=== PATIENT | male | born 1980 | race Caucasian/White ===

== ENCOUNTER 2019-04-13 10:17 | Outpatient (RCR) | payer MEDICARE, MEDICAID, SELFPAY | END 2019-04-13 23:59 | disposition home or self-care (01) | LOC: ANHAUDIO 10:17 | DX: Z46.1 Encounter for fitting and adjustment of hearing aid (principal) | CPT/HCPCS: 99199 ==

== ENCOUNTER 2019-06-23 09:23 | Outpatient (CLI) | payer MEDICARE, MEDICAID, SELFPAY | END 2019-06-23 09:24 | disposition home or self-care (01) | LOC: ANHAUDIO 09:25 | DX: Z01.118 Encounter for examination of ears and hearing with other abnormal findings (principal); H90.3 Sensorineural hearing loss, bilateral | CPT/HCPCS: 92557; 92567 ==

== ENCOUNTER 2020-07-18 07:56 | Outpatient (CLI) | payer MEDICARE, MEDICAID, SELFPAY | END 2020-07-18 07:57 | disposition home or self-care (01) | PROVIDERS: PCP Family Medicine; Visit Provider Family Medicine | DX: Z01.118 Encounter for examination of ears and hearing with other abnormal findings (principal); H90.3 Sensorineural hearing loss, bilateral | CPT/HCPCS: 92557; 92567 ==

== ENCOUNTER 2020-08-31 08:58 | Outpatient (RCR) | payer MEDICAID, SELFPAY | END 2020-08-31 23:59 | disposition home or self-care (01) | LOC: ANHAUDIO 08:58 | PROVIDERS: PCP Family Medicine; Visit Provider Family Medicine | DX: Z46.1 Encounter for fitting and adjustment of hearing aid (principal); H91.90 Unspecified hearing loss, unspecified ear | CPT/HCPCS: V5160; V5261 ==

== ENCOUNTER 2021-07-25 09:02 | Outpatient (CLI) | payer MEDICARE, MEDICAID, SELFPAY | END 2021-07-25 09:03 | disposition home or self-care (01) | LOC: ANHAUDIO 09:04 | PROVIDERS: PCP Family Medicine; Visit Provider Family Medicine | DX: Z01.118 Encounter for examination of ears and hearing with other abnormal findings (principal); H90.3 Sensorineural hearing loss, bilateral | CPT/HCPCS: 92557; 92567 ==

== ENCOUNTER 2022-08-01 08:48 | Outpatient (CLI) | payer MEDICARE, MEDICAID, SELFPAY | END 2022-08-01 08:49 | disposition home or self-care (01) | LOC: ANHAUDIO 08:49 | PROVIDERS: PCP Family Medicine; Visit Provider Family Medicine | DX: H90.3 Sensorineural hearing loss, bilateral (principal) | CPT/HCPCS: 92557; 92567 ==

== ENCOUNTER 2023-08-20 07:59 | Outpatient (CLI) | payer MEDICARE, MEDICAID, SELFPAY | END 2023-08-20 08:00 | disposition home or self-care (01) | LOC: ANHAUDIO 08:01 | PROVIDERS: PCP Family Medicine; Visit Provider Family Medicine | DX: H90.3 Sensorineural hearing loss, bilateral (principal) | CPT/HCPCS: 92557; 92567 ==

== ENCOUNTER 2024-08-25 07:56 | Outpatient (CLI) | payer MEDICARE, MEDICAID, SELFPAY ==
--- OUTSIDE RECORDS SUMMARY | 2024-08-25 08:02 | XMS_ITS ---
Author Organization Unknown Address [address] [place] [phone] Phone Care Team Providers Care Supervisor Dumping Name Role Phone VALERIEMADHAV LOTUS WHITAKERHNP Attending Unavailable BAO Walker Primary Unavailable Immunization Immunization Date Status Additional Notes Code Code System DTP 1982 Completed 01 CVX DTP 1982 Completed 01 CVX DTP 02/12/1983 Completed 01 CVX DTP 09/07/1986 Completed 01 CVX DTP 12/14/1987 Completed 01 CVX OPV 1982 Completed 02 CVX OPV 1982 Completed 02 CVX OPV 02/12/1983 Completed 02 CVX OPV 12/14/1987 Completed 02 CVX MMR 08/26/1984 Completed 03 CVX MMR 12/14/1987 Completed 03 CVX Td (adult), 2 Lf tetanus toxoid, preservative free, adsorbed 03/10/2002 Completed 09 CVX pneumococcal polysaccharide PPV23 11/19/2011 Completed 33 CVX Tdap 03/19/2011 Completed 115 CVX Tdap 11/28/2020 Completed 115 CVX Pneumococcal conjugate PCV 13 03/07/2016 Completed 133 CVX Influenza, split virus, trivalent, preservative 03/02/2012 Completed 141 CVX Influenza, split virus, trivalent, preservative 02/03/2024 Completed 141 CVX Influenza, split virus, quadrivalent, preservative 02/04/2017 Completed 158 C VX Influenza, split virus, quadrivalent, preservative 02/10/2018 Completed 158 C VX Influenza, split virus, quadrivalent, preservative 02/09/2019 Completed 158 C VX Influenza, split virus, quadrivalent, preservative 02/06/2021 Completed 158 C VX Influenza, split virus, quadrivalent, preservative 01/29/2022 Completed 158 C VX Influenza, split virus, quadrivalent, preservative 01/28/2023 Completed 158 C VX COVID-19, mRNA, LNP-S, PF, 1 00 mcg/0.5mL dose or 50 mcg/0.25mL dose 05/07/2021 Completed 207 CVX COVID-19, mRNA, LNP-S, PF, 3 0 mcg/0.3 mL dose 06/14/2020 Completed 208 CVX COVID-19, mRNA, LNP-S, PF, 3 0 mcg/0.3 mL dose 07/05/2020 Completed 208 CVX COVID-19, mRNA, LNP-S, PF, 5 0 mcg/0.5 mL 02/01/2024 Completed 312 CVX Results CBC W/ DIFF - Collect Date/T ayaz: 03/31/2024 07:25 [facility] ID: [id number] [address] [place], [place], [id number] LOINC: 17074-4 Test Value Unit Reference Range Code Code System Flag WBC 9.0 10^3uL L=4.8 H=10.8 RBC 5.17 10^6uL L=4.60 H=6.20 HEMOGLOBIN 16.0 g/dL L=14.0 H=18.0 718-7 LOINC HEMATOCRIT 49.8 VOL% L=42.0 H=52.0 4544-3 LOINC MCV 96.3 fL L=80.0 H=94.0 H MCH 30.9 pg L=27.0 H=32.0 MCHC 32.1 g/dL L=32.0 H=36.0 PLATELETS 305 10^3uL L=100 H=400 17172-3 LOINC RDW 12.6 % L=11.7 H=15.5 %GRAN 67.1 % L=40.0 H=70.0 52185-1 LOINC %LYMPH 21.2 % L=20.0 H=45.0 736-9 LOINC %MONO 8.6 % L=2.0 H=10.0 05939-9 LOINC %EOS 2.2 % L=0.0 H=6.0 713-8 LOINC %BASO 0.6 % L=0.0 H=3.0 706-2 LOINC #NEUT 6.0 10^3uL L=1.9 H=7.6 81075-0 LOINC #LYMPH 1.9 10^3uL L=0.9 H=4.9 50820-5 LOINC #MONO 0.8 10^3uL L=0.1 H=0.9 63702-8 LOINC #EOS 0.2 10^3uL L=0.0 H=0.6 712-0 LOINC #BASO 0.05 10^3uL L=0.00 H=0.10 88117-7 LOINC #IM GRANS 0.0 10^3uL L=0.0 H=7.0 79359-9 LOINC %IM GRANS 0.3 % L=0.0 H=5.0 36436-4 LOINC %NRB 0.0 L=0.0 H=0.2 14168-6 LOINC #NRB 0.000 L=0.000 H=0.012 85902-3 LOINC MANUAL DIFF NOT INDICATED RBC MORPH NOT INDICATED Social History Type Status Start Date End Date Code Code Syst em Smoking History Current every day smoker [id number] SNOMED CT Sex Male Medications Medication Start Date End Date Route Frequency Dose Code Code System Medication Instructions Home Meds Aspirin 325MG Oral Tablet 08/18/2021 Unknown ORAL ONCE A DAY 325 MILLIGRAMS 489012 RxNorm TAKE 325 MILLIGRAMS ORAL ONCE A DAY Cetirizine HCl 10MG Oral Tablet 08/18/2021 Unknown ORAL ONCE A DAY 10 MILLIGRAMS 1506886 RxNorm TAKE 10 MILLIGRAMS ORAL ONCE A DAY DSS 100MG Oral Capsule, Liquid Filled 08/18/2021 Unknown ORAL AT BEDTIME 100 MILLIGRAMS RxNorm TAKE 100 MILLIGRAMS ORAL AT BEDTIME Montelukast Sodium 10MG Oral Tablet 08/18/2021 Unknown ORAL AT BEDTIME 10 MILLIGRAMS [id number] RxNorm TAKE 10 MILLIGRAMS ORAL AT BEDTIME Multivitamin with Iron Oral Tablet 08/18/2021 Unknown ORAL ONCE A DAY 1 TABLET RxNorm TAKE 1 TABLET ORAL ONCE A DAY PARoxetine HCl 12.5MG Oral Tablet, Extended Release 08/18/2021 Unknown ORAL ONCE A DAY 12.5 MILLIGRAMS 3562546 RxNorm TAKE 12.5 MILLIGRAMS ORAL ONCE A DAY PARoxetine HCl 37.5MG Oral Tablet, Extended Release 08/18/2021 Unknown ORAL DAILY AT 1600 37.5 MILLIGRAMS 4314864 RxNorm TAKE 37.5 MILLIGRAMS ORAL DAILY AT 1600 Vitamin D3 2000 IU Oral Capsule, Liquid Filled 08/18/2021 Unknown ORAL ONCE A DAY 2000 unit(s) RxNorm TAKE 2000 EACH ORAL ONCE A DAY tadalafil 20MG Oral Tablet 08/18/2021 Unknown ORAL ONCE A DAY 20 MILLIGRAMS 8171916 RxNorm TAKE 20 MILLIGRAMS ORAL ONCE A DAY Albuterol Sulfate 0.083% Inhalation Solution 09/18/2021 Unknown NEBULIZER NEEDED EVERY 4 HOURS 2.5 MILLIGRAMS 664402 RxNorm 2.5 MILLIGRAMS NEBULIZER NEEDED EVERY 4 HOURS Lisinopril 10MG Oral Tablet 09/18/2021 Unknown ORAL ONCE A DAY 10 MILLIGRAMS 169432 RxNorm TAKE 10 MILLIGRAMS ORAL ONCE A DAY Metoprolol Succinate 50MG Oral Tablet, Extended Release 09/18/2021 Unknown ORAL ONCE A DAY 50 MILLIGRAMS 602524 RxNorm TAKE 50 MILLIGRAMS ORAL ONCE A DAY FOR HIGH BLOOD PRESSURE risperiDONE 0.5MG Oral Tablet 09/18/2021 Unknown ORAL ONCE A DAY 0.25 MILLIGRAMS 774119 RxNorm TAKE 0.25 MILLIGRAMS ORAL ONCE A DAY Lasix 40MG Oral Tablet 09/18/2021 Unknown BY MOUTH ONCE A DAY 1 TABLET RxNorm TAKE 1 TABLET BY MOUTH ONCE A DAY Assessment You had the following problems:CHFPNEUMONIA Hospital Discharge Instructions Should you have any questions prior to discharge, please contact a member of your healthcare team. If you have left the hospital and have any questions, please contact your primary care physician. Reason For Referral No Data Found Problems Problem Start Date Resolved Date Status Code Code System CHF active 16112202 SNOMED-CT PNEUMONIA 08/07/2021 active [id number] SNOMED-CT Allergies and Adverse Reactions Allergy Substance Reaction Severity Start Date Concern Status Co de Code System POLYMYXIN B/TRIMETHOPRIM SULFATE Active 059702 Rx Norm Plan of Treatment COVID-19 Antibody Therapy Infusion 03/25 Encounters Encounter Diagnosis Start Date Code Code Sys tem Shortness of breath 03/31/2024 SNOMED-C T Personal Care Team Section Performer Name Performer Role Active Date Inactive Da te
--- OUTSIDE RECORDS SUMMARY | 2024-08-25 08:03 | XMS_ITS ---
Author Organization Unknown Address [address] [place] [address] [phone] Phone Care Team Providers Care Template Reproduction Technician Name Role Phone JACK BORGES Attending Unavailable BAO Walker Primary Unavailable Immunization [...] mcg/0.5 mL 02/01/2024 Completed 312 CVX Results BASIC METABOLIC PANEL - Ruth ect Date/Time: 01/05/2024 07:10 [facility] ID: [id number] [address] [place], [place], [phone] LOINC: 28101-7 Test Value Unit Reference Range Code Code System Flag FASTING YES BUN 11 mg/dL L=7 H=20 3094-0 LOINC CREATININE 0.70 mg/dL L=0.66 H=1.25 2160-0 LOINC GLUCOSE 100 mg/dL L=74 H=106 2345-7 LOINC CALCIUM 9.7 mg/dL L=8.3 H=10.5 08291-9 LOINC SODIUM 137 mmol/L L=132 H=144 2951-2 LOINC POTASSIUM 4.7 mmol/L L=3.5 H=5.1 2823-3 LOINC CHLORIDE 102 mmol/L L=98 H=107 2075-0 LOINC CO2 26.0 mmol/L L=22.0 H=30.0 2028-9 LOINC ANION GAP 14 L=10 H=20 53912-2 LOINC BUN/CREAT 15.7 3097-3 LOINC AGE 43 13001-1 LOINC eGFR NON-AFR 132 ml/min eGFR AFR AMER 160 ml/min Social History Type Status Start Date End Date Code Code Syst em Smoking History Current every day smoker [id number] SNOMED CT Sex Male Medications Medication Start Date End Date Route Frequency Dose Code Code System Medication Instructions Home Meds Aspirin 325MG Oral Tablet 08/18/2021 Unknown ORAL ONCE A DAY 325 MILLIGRAMS 271774 RxNorm TAKE 325 MILLIGRAMS ORAL ONCE A DAY Cetirizine HCl 10MG Oral Tablet 08/18/2021 Unknown ORAL ONCE A DAY 10 MILLIGRAMS 2995614 RxNorm TAKE 10 MILLIGRAMS ORAL ONCE A DAY DSS 100MG Oral Capsule, Liquid Filled 08/18/2021 Unknown ORAL AT BEDTIME 100 MILLIGRAMS RxNorm TAKE 100 MILLIGRAMS ORAL AT BEDTIME Montelukast Sodium 10MG Oral Tablet 08/18/2021 Unknown ORAL AT BEDTIME 10 MILLIGRAMS 862144 RxNorm TAKE 10 MILLIGRAMS ORAL AT BEDTIME Multivitamin with Iron Oral Tablet 08/18/2021 Unknown ORAL ONCE A DAY 1 TABLET RxNorm TAKE 1 TABLET ORAL ONCE A DAY PARoxetine HCl 12.5MG Oral Tablet, Extended Release 08/18/2021 Unknown ORAL ONCE A DAY 12.5 MILLIGRAMS 5306471 RxNorm TAKE 12.5 MILLIGRAMS ORAL ONCE A DAY PARoxetine HCl 37.5MG Oral Tablet, Extended Release 08/18/2021 Unknown ORAL DAILY AT 1600 37.5 MILLIGRAMS 9538557 RxNorm TAKE 37.5 MILLIGRAMS ORAL DAILY AT 1600 Vitamin D3 2000 IU Oral Capsule, Liquid Filled 08/18/2021 Unknown ORAL ONCE A DAY 2000 unit(s) RxNorm TAKE 2000 EACH ORAL ONCE A DAY tadalafil 20MG Oral Tablet 08/18/2021 Unknown ORAL ONCE A DAY 20 MILLIGRAMS 3793023 RxNorm TAKE 20 MILLIGRAMS ORAL ONCE A DAY Albuterol Sulfate 0.083% Inhalation Solution 09/18/2021 Unknown NEBULIZER NEEDED EVERY 4 HOURS 2.5 MILLIGRAMS 383705 RxNorm 2.5 MILLIGRAMS NEBULIZER NEEDED EVERY 4 HOURS Lisinopril 10MG Oral Tablet 09/18/2021 Unknown ORAL ONCE A DAY 10 MILLIGRAMS 266026 RxNorm TAKE 10 MILLIGRAMS ORAL ONCE A DAY Metoprolol Succinate 50MG Oral Tablet, Extended Release 09/18/2021 Unknown ORAL ONCE A DAY 50 MILLIGRAMS 184904 RxNorm TAKE 50 MILLIGRAMS ORAL ONCE A DAY FOR HIGH BLOOD PRESSURE risperiDONE 0.5MG Oral Tablet 09/18/2021 Unknown ORAL ONCE A DAY 0.25 MILLIGRAMS 262828 RxNorm TAKE 0.25 MILLIGRAMS ORAL ONCE A [...] Date Status Code Code System CHF active 57413244 SNOMED-CT PNEUMONIA 08/07/2021 active 348324823 SNOMED-CT Allergies and Adverse Reactions Allergy Substance Reaction Severity Start Date Concern Status Co de Code System POLYMYXIN B/TRIMETHOPRIM SULFATE Active 861315 Rx Norm Plan of Treatment COVID-19 Antibody Therapy Infusion 03/25 Encounters Encounter Diagnosis Start Date Code Code Sys tem Other detention (current) drug therapy 01/05/2024 SNOMED-CT Personal Care Team Section Performer Name Performer Role Active Date Inactive Da te
--- OUTSIDE RECORDS SUMMARY | 2024-08-25 08:03 | XMS_ITS ---
Author Organization Unknown Address [address] [place] [phone] Phone Care Team Providers Care Hypo Dipper Name Role Phone VALERIEMADHAV LOTUS WHITAKERHNP Attending [...] BASIC METABOLIC PANEL - Ruth ect Date/Time: 03/08/2024 08:05 [facility] ID: [id number] [address] [place], [place], [phone] LOINC: 77686-9 Test Value Unit Reference Range Code Code System Flag FASTING NO BUN 9 mg/dL L=7 H=20 3094-0 LOINC CREATININE 0.90 mg/dL L=0.66 H=1.25 2160-0 LOINC GLUCOSE 150 mg/dL L=74 H=106 2345-7 LOINC H CALCIUM 9.8 mg/dL L=8.3 H=10.5 03601-6 LOINC SODIUM 138 mmol/L L=132 H=144 2951-2 LOINC POTASSIUM 4.5 mmol/L L=3.5 H=5.1 2823-3 LOINC CHLORIDE 98 mmol/L L=98 H=107 2075-0 LOINC CO2 29.0 mmol/L L=22.0 H=30.0 2028-9 LOINC ANION GAP 16 L=10 H=20 58885-5 LOINC BUN/CREAT 10.0 3097-3 LOINC AGE 43 00878-2 LOINC eGFR NON-AFR 99 ml/min eGFR AFR AMER 120 ml/min Social History Type Status Start Date End Date Code Code Syst em Smoking History Current every day smoker 124925338 SNOMED CT Sex Male Medications Medication Start Date End Date Route Frequency Dose Code Code System Medication Instructions Home Meds Aspirin 325MG Oral Tablet 08/18/2021 Unknown ORAL ONCE A DAY 325 MILLIGRAMS 813244 RxNorm TAKE 325 MILLIGRAMS ORAL ONCE A DAY Cetirizine HCl 10MG Oral Tablet 08/18/2021 Unknown ORAL ONCE A DAY 10 MILLIGRAMS 1326396 RxNorm TAKE 10 MILLIGRAMS ORAL ONCE A DAY DSS 100MG Oral Capsule, Liquid Filled 08/18/2021 Unknown ORAL AT BEDTIME 100 MILLIGRAMS RxNorm TAKE 100 MILLIGRAMS ORAL AT BEDTIME Montelukast Sodium 10MG Oral Tablet 08/18/2021 Unknown ORAL AT BEDTIME 10 MILLIGRAMS 526432 RxNorm TAKE 10 MILLIGRAMS ORAL AT BEDTIME Multivitamin with Iron Oral Tablet 08/18/2021 Unknown ORAL ONCE A DAY 1 TABLET RxNorm TAKE 1 TABLET ORAL ONCE A DAY PARoxetine HCl 12.5MG Oral Tablet, Extended Release 08/18/2021 Unknown ORAL ONCE A DAY 12.5 MILLIGRAMS 2004036 RxNorm TAKE 12.5 MILLIGRAMS ORAL ONCE A DAY PARoxetine HCl 37.5MG Oral Tablet, Extended Release 08/18/2021 Unknown ORAL DAILY AT 1600 37.5 MILLIGRAMS 1922647 RxNorm TAKE 37.5 MILLIGRAMS ORAL DAILY AT 1600 Vitamin D3 2000 IU Oral Capsule, Liquid Filled 08/18/2021 Unknown ORAL ONCE A DAY 2000 unit(s) RxNorm TAKE 2000 EACH ORAL ONCE A DAY tadalafil 20MG Oral Tablet 08/18/2021 Unknown ORAL ONCE A DAY 20 MILLIGRAMS 7723387 RxNorm TAKE 20 MILLIGRAMS ORAL ONCE A DAY Albuterol Sulfate 0.083% Inhalation Solution 09/18/2021 Unknown NEBULIZER NEEDED EVERY 4 HOURS 2.5 MILLIGRAMS 671393 RxNorm 2.5 MILLIGRAMS NEBULIZER NEEDED EVERY 4 HOURS Lisinopril 10MG Oral Tablet 09/18/2021 Unknown ORAL ONCE A DAY 10 MILLIGRAMS 256574 RxNorm TAKE 10 MILLIGRAMS ORAL ONCE A DAY Metoprolol Succinate 50MG Oral Tablet, Extended Release 09/18/2021 Unknown ORAL ONCE A DAY 50 MILLIGRAMS 935387 RxNorm TAKE 50 MILLIGRAMS ORAL ONCE A DAY FOR HIGH BLOOD PRESSURE risperiDONE 0.5MG Oral Tablet 09/18/2021 Unknown ORAL ONCE A DAY 0.25 MILLIGRAMS 873734 RxNorm TAKE 0.25 MILLIGRAMS ORAL ONCE A [...] Date Status Code Code System CHF active 50333282 SNOMED-CT PNEUMONIA 08/07/2021 active 562015740 SNOMED-CT Allergies and Adverse Reactions Allergy Substance Reaction Severity Start Date Concern Status Co de Code System POLYMYXIN B/TRIMETHOPRIM SULFATE Active 683232 Rx Norm Plan of Treatment COVID-19 Antibody Therapy Infusion 03/25 Encounters Encounter Diagnosis Start Date Code Code 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
--- OUTSIDE RECORDS SUMMARY | 2024-08-25 08:03 | XMS_ITS ---
Author Organization Unknown Address [address] [place] [phone] Phone Care Team Providers Care Product Marketing Engineer Name Role Phone JACK BORGES Attending Unavailable [...] BASIC METABOLIC PANEL - Ruth ect Date/Time: 09/08/2023 06:45 [facility] ID: [id number] [address] [place], [place], [phone] LOINC: 30787-5 Test Value Unit Reference Range Code Code System Flag FASTING YES BUN 12 mg/dL L=7 H=20 3094-0 LOINC CREATININE 0.80 mg/dL L=0.66 H=1.25 2160-0 LOINC GLUCOSE 111 mg/dL L=74 H=106 2345-7 LOINC H CALCIUM 9.7 mg/dL L=8.3 H=10.5 70595-0 LOINC SODIUM 138 mmol/L L=132 H=144 2951-2 LOINC POTASSIUM 4.4 mmol/L L=3.5 H=5.1 2823-3 LOINC CHLORIDE 103 mmol/L L=98 H=107 2075-0 LOINC CO2 27.0 mmol/L L=22.0 H=30.0 2028-9 LOINC ANION GAP 12 L=10 H=20 22753-6 LOINC BUN/CREAT 15.0 3097-3 LOINC AGE 43 83261-2 LOINC eGFR NON-AFR 113 ml/min eGFR AFR AMER 137 ml/min Social History Type Status Start Date End Date Code Code Syst em Smoking History Current every day smoker 537470145 SNOMED CT Sex Male Medications Medication Start Date End Date Route Frequency Dose Code Code System Medication Instructions Home Meds Aspirin 325MG Oral Tablet 08/18/2021 Unknown ORAL ONCE A DAY 325 MILLIGRAMS 731158 RxNorm TAKE 325 MILLIGRAMS ORAL ONCE A DAY Cetirizine HCl 10MG Oral Tablet 08/18/2021 Unknown ORAL ONCE A DAY 10 MILLIGRAMS 2578540 RxNorm TAKE 10 MILLIGRAMS ORAL ONCE A DAY DSS 100MG Oral Capsule, Liquid Filled 08/18/2021 Unknown ORAL AT BEDTIME 100 MILLIGRAMS RxNorm TAKE 100 MILLIGRAMS ORAL AT BEDTIME Montelukast Sodium 10MG Oral Tablet 08/18/2021 Unknown ORAL AT BEDTIME 10 MILLIGRAMS 163424 RxNorm TAKE 10 MILLIGRAMS ORAL AT BEDTIME Multivitamin with Iron Oral Tablet 08/18/2021 Unknown ORAL ONCE A DAY 1 TABLET RxNorm TAKE 1 TABLET ORAL ONCE A DAY PARoxetine HCl 12.5MG Oral Tablet, Extended Release 08/18/2021 Unknown ORAL ONCE A DAY 12.5 MILLIGRAMS 7588261 RxNorm TAKE 12.5 MILLIGRAMS ORAL ONCE A DAY PARoxetine HCl 37.5MG Oral Tablet, Extended Release 08/18/2021 Unknown ORAL DAILY AT 1600 37.5 MILLIGRAMS 5354091 RxNorm TAKE 37.5 MILLIGRAMS ORAL DAILY AT 1600 Vitamin D3 2000 IU Oral Capsule, Liquid Filled 08/18/2021 Unknown ORAL ONCE A DAY 2000 unit(s) RxNorm TAKE 2000 EACH ORAL ONCE A DAY tadalafil 20MG Oral Tablet 08/18/2021 Unknown ORAL ONCE A DAY 20 MILLIGRAMS 1653883 RxNorm TAKE 20 MILLIGRAMS ORAL ONCE A DAY Albuterol Sulfate 0.083% Inhalation Solution 09/18/2021 Unknown NEBULIZER NEEDED EVERY 4 HOURS 2.5 MILLIGRAMS 146455 RxNorm 2.5 MILLIGRAMS NEBULIZER NEEDED EVERY 4 HOURS Lisinopril 10MG Oral Tablet 09/18/2021 Unknown ORAL ONCE A DAY 10 MILLIGRAMS 216276 RxNorm TAKE 10 MILLIGRAMS ORAL ONCE A DAY Metoprolol Succinate 50MG Oral Tablet, Extended Release 09/18/2021 Unknown ORAL ONCE A DAY 50 MILLIGRAMS 244935 RxNorm TAKE 50 MILLIGRAMS ORAL ONCE A DAY FOR HIGH BLOOD PRESSURE risperiDONE 0.5MG Oral Tablet 09/18/2021 Unknown ORAL ONCE A DAY 0.25 MILLIGRAMS 431630 RxNorm TAKE 0.25 MILLIGRAMS ORAL ONCE A [...] Date Status Code Code System CHF active 88304338 SNOMED-CT PNEUMONIA 08/07/2021 active 198484778 SNOMED-CT Allergies and Adverse Reactions Allergy Substance Reaction Severity Start Date Concern Status Co de Code System POLYMYXIN B/TRIMETHOPRIM SULFATE Active 342764 Rx Norm Plan of Treatment COVID-19 Antibody Therapy Infusion 03/25 Encounters Encounter Diagnosis Start Date Code Code Sys tem Other halfway (current) drug therapy 09/08/2023 SNOMED-CT Personal Care Team Section Performer Name Performer Role Active Date Inactive Da zara
--- OUTSIDE RECORDS SUMMARY | 2024-08-25 08:04 | XMS_ITS ---
Author Organization Unknown Address [address] [place] [phone] Phone Care Team Providers Care Assistant Grocery Name Role Phone VALERIEMADHAV LOTUS WHITAKERHNP Attending [...] mcg/0.5 mL 02/01/2024 Completed 312 CVX Results COMPREHENSIVE METABOLIC PANE L - Collect Date/Time: 06/20/2024 07:42 [facility] ID: [id number] [address] [place], [place], [phone] LOINC: 10370-2 Test Value Unit Reference Range Code Code System Flag FASTING YES BUN 12 mg/dL L=7 H=20 3094-0 LOINC CREATININE 0.70 mg/dL L=0.66 H=1.25 2160-0 LOINC GLUCOSE 80 mg/dL L=74 H=106 2345-7 LOINC SODIUM 138 mmol/L L=132 H=144 2951-2 LOINC POTASSIUM 4.4 mmol/L L=3.5 H=5.1 2823-3 LOINC CHLORIDE 99 mmol/L L=98 H=107 2075-0 LOINC CO2 25.0 mmol/L L=22.0 H=30.0 2028-9 LOINC ANION GAP 18 L=10 H=20 30699-5 LOINC OSMOLALITY 285 mOs/kG L=280 H=296 45334-4 LOINC BUN/CREAT 17.1 3097-3 LOINC CALCIUM 9.6 mg/dL L=8.3 H=10.5 34706-8 LOINC AST 34 U/L L=15 H=46 1920-8 LOINC ALT 34 U/L L=9 H=72 1742-6 LOINC ALKALINE PHOS 138 U/L L=38 H=126 6768-6 LOINC H TOTAL BILI 0.8 mg/dL L=0.2 H=1.3 1975-2 LOINC ALBUMIN 4.4 G/dL L=3.5 H=5.0 1751-7 LOINC TOTAL PROTEIN 7.6 g/L L=6.3 H=8.2 2885-2 LOINC A/G RATIO 1.4 27543-3 LOINC AGE 43 35294-7 LOINC eGFR NON-AFR 132 ml/min eGFR AFR AMER 160 ml/min LIPID PANEL - Collect Date/T ayaz: 06/20/2024 07:42 [facility] ID: [id number] [address] [place] [address], [phone] LOINC: 57251-8 Test Value Unit Reference Range Code Code System Flag FASTING YES CHOLESTEROL 180 mg/dL L=0 H=200 3-3 LOINC TRIGLYCERIDE 71 mg/dL L=0 H=150 2571-8 LOINC HDL 73 mg/dL L=40 H=60 5-9 LOINC H LDL 85 mg/dL 9-1 LOINC TSH - Collect Date/Time: 07:42 [facility] ID: [id number] [address] [place] [address], [phone] LOINC: 07093-2 Test Value Unit Reference Range Code Code System Flag TSH. 2.910 uIU/L L=0.470 H=4.680 81187-2 LOINC T4 FREE - Collect Date/Time: 06/20/2024 07:42 [facility] ID: [id number] [address] [place] [address], [phone] LOINC: 3024-7 Test Value Unit Reference Range Code Code System Flag T4, FREE 1.96 ng/dL L=0.78 H=2.19 3024-7 LOINC FREE T3 - Collect Date/Time: 06/20/2024 07:42 [facility] ID: [id number] [address] [place] [address], [phone] LOINC: 3051-0 Test Value Unit Reference Range Code Code System Flag FREE T3 4.04 pg/mL L=2.77 H=5.27 3051-0 LOINC 25 HYDROXY VITAMIN D - Colle ct Date/Time: 06/20/2024 07:42 [facility] ID: [id number] [address] [place] [address], [phone] LOINC: Test Value Unit Reference Range Code Code System Flag VITAMIN D 59.8 ng/ml L=30.0 H=100 08116-3 LOINC CBC W/ DIFF - Collect Date/T ayaz: 06/20/2024 07:42 [facility] ID: [id number] [address] [place] [address], [phone] LOINC: 84121-5 Test Value Unit Reference Range Code Code System Flag WBC 10.6 10^3uL L=4.8 H=10.8 RBC 5.19 10^6uL L=4.60 H=6.20 HEMOGLOBIN 16.1 g/dL L=14.0 H=18.0 718-7 LOINC HEMATOCRIT 49.5 VOL% L=42.0 H=52.0 4544-3 LOINC MCV 95.4 fL L=80.0 H=94.0 H MCH 31.0 pg L=27.0 H=32.0 MCHC 32.5 g/dL L=32.0 H=36.0 PLATELETS 334 10^3uL L=100 H=400 24911-5 LOINC RDW 12.9 % L=11.7 H=15.5 %GRAN 69.5 % L=40.0 H=70.0 47743-7 LOINC %LYMPH 18.6 % L=20.0 H=45.0 736-9 LOINC L %MONO 10.1 % L=2.0 H=10.0 05430-6 LOINC H %EOS 0.8 % L=0.0 H=6.0 713-8 LOINC %BASO 0.6 % L=0.0 H=3.0 706-2 LOINC #NEUT 7.4 10^3uL L=1.9 H=7.6 40137-9 LOINC #LYMPH 2.0 10^3uL L=0.9 H=4.9 94536-4 LOINC #MONO 1.1 10^3uL L=0.1 H=0.9 29645-6 LOINC H #EOS 0.1 10^3uL L=0.0 H=0.6 712-0 LOINC #BASO 0.06 10^3uL L=0.00 H=0.10 38832-1 LOINC #IM GRANS 0.0 10^3uL L=0.0 H=7.0 00129-0 LOINC %IM GRANS 0.4 % L=0.0 H=5.0 38816-0 LOINC %NRB 0.0 L=0.0 H=0.2 15867-7 LOINC #NRB 0.000 L=0.000 H=0.012 23061-4 LOINC MANUAL DIFF NOT INDICATED RBC MORPH NOT INDICATED Social History Type Status Start Date End Date Code Code Syst em Smoking History Current every day smoker [id number] SNOMED CT Sex Male Medications Medication Start Date End Date Route Frequency Dose Code Code System Medication Instructions Home Meds Aspirin 325MG Oral Tablet 08/18/2021 Unknown ORAL ONCE A DAY 325 MILLIGRAMS 473164 RxNorm TAKE 325 MILLIGRAMS ORAL ONCE A DAY Cetirizine HCl 10MG Oral Tablet 08/18/2021 Unknown ORAL ONCE A DAY 10 MILLIGRAMS [id number] RxNorm TAKE 10 MILLIGRAMS ORAL ONCE A [...] Unknown ORAL ONCE A DAY 12.5 MILLIGRAMS [id number] RxNorm TAKE 12.5 MILLIGRAMS ORAL ONCE A DAY PARoxetine HCl 37.5MG Oral Tablet, Extended Release 08/18/2021 Unknown ORAL DAILY AT 1600 37.5 MILLIGRAMS [id number] RxNorm TAKE 37.5 MILLIGRAMS ORAL DAILY AT 1600 Vitamin D3 2000 IU Oral Capsule, Liquid Filled 08/18/2021 Unknown ORAL ONCE A DAY 2000 unit(s) RxNorm TAKE 2000 EACH ORAL ONCE A DAY tadalafil 20MG Oral Tablet 08/18/2021 Unknown ORAL ONCE A DAY 20 MILLIGRAMS [id number] RxNorm TAKE 20 MILLIGRAMS ORAL ONCE A DAY Albuterol Sulfate 0.083% Inhalation Solution 09/18/2021 Unknown NEBULIZER NEEDED EVERY 4 HOURS 2.5 MILLIGRAMS 134903 RxNorm 2.5 MILLIGRAMS NEBULIZER NEEDED EVERY 4 HOURS Lisinopril 10MG Oral Tablet 09/18/2021 Unknown ORAL ONCE A DAY 10 MILLIGRAMS [id number] RxNorm TAKE 10 MILLIGRAMS ORAL ONCE A DAY Metoprolol Succinate 50MG Oral Tablet, Extended Release 09/18/2021 Unknown ORAL ONCE A DAY 50 MILLIGRAMS 363252 RxNorm TAKE 50 MILLIGRAMS ORAL ONCE A DAY FOR HIGH BLOOD PRESSURE risperiDONE 0.5MG Oral Tablet 09/18/2021 Unknown ORAL ONCE A DAY 0.25 MILLIGRAMS 525018 RxNorm TAKE 0.25 MILLIGRAMS ORAL ONCE A DAY Lasix 40MG Oral Tablet 09/18/2021 Unknown BY MOUTH ONCE A DAY 1 TABLET RxNorm TAKE 1 TABLET BY MOUTH ONCE A DAY Assessment [facility] the following problems[facility] Discharge Instructions Should you have any questions prior to discharge, please contact a member of your healthcare team. If you have left the hospital and have any questions, please contact your primary care physician. Reason For Referral No Data Found Problems Problem Start Date Resolved Date Status Code Code System CHF active [id number] SNOMED-CT PNEUMONIA 08/07/2021 active [id number] SNOMED-CT Allergies and Adverse Reactions Allergy Substance Reaction Severity Start Date Concern Status Co de Code System POLYMYXIN B/TRIMETHOPRIM SULFATE Active 880730 Rx Norm Plan of Treatment COVID-19 Antibody Therapy Infusion 03/25 Encounters Encounter Diagnosis Start Date Code Code Sys tem Long-term current use of drug therapy 06/20/2024 [id number] SNOMED-CT Personal Care Team Section Performer Name Performer Role Active Date Inactive Da te
--- OUTSIDE RECORDS SUMMARY | 2024-08-25 08:04 | XMS_ITS | Encounter Summary ---
Author Organization [facility] Address [address] [place] [address] Care Team Providers Care Director Of Casework Services Name Role Phone Moy Gutierrez MD Primary Care Provider [facility] Gokul Downing MD Primary Care Provider Gokul Becerra Primary Care Provider Gokul Alberts MD Primary Care Provider Gabriela Morillo-Ximena Unavailable Encounter Details Date Type Department Care Team (Late st Contact Info) Description 03/31/2016 Telephone [facility] Pediatrics - Pulmonology [address] [place] [phone] Malik Hand MD [address] [place] [phone] Social History Tobacco Use Types Packs/Day Years Used Date Smoking Tobacco: Never Sex and Gender Information Value Date Recorded Sex Assigned at Not on file Gender Identity Not on file Sexual Orientation Not on file documented as of this encounter Miscellaneous Notes * Telephone Encounter - Merly Holly - 03/31/2016 11:15 AM CST 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 I explained over 2 years since seen and is 35-not sure if we could do it. Told her either you or I would call back and let herknow if we will or with a referral name. Please advise, Alma [employer] documented in this encounter Plan of Treatment Upcoming Encounters Date Type Department Care Team (Late st Contact Info) Description 09/22/2024 9:30 AM CDT Appointment [facility] at [address] [place] [address] 09/22/2024 10:00 AM CDT Appointment [facility] at [address] [address] Samuel Vaughn MD [address] [place] [phone] 10/18/2024 10:30 AM CDT Office Visit [facility] - Pulmonology [address] [place] [address], [place] [phone] Segundo Gonzalez MD [address] [place] [address] 2[address] DIV OF PULMONARY/[place] [phone] documented as of this encounter Visit Diagnoses Not on filedocumented in this encounter Care Teams Director Of Casework Services Relationship Specialty Start Date End Date Moy Gutierrez MD PCP - General Family Medicine 12/24/12 06/10/17 Gokul Alberts MD [address] [place] [phone] PCP - General Family Medicine 06/11/17 08/31/17 Gokul Becerra [address] [place] [address] PCP - General 09/01/17 09/03/18 Gokul Alberts MD [address] [place] [phone] PCP - General 09/04/18 Gabriela Morillo PA-C [address] [place] [address] Physician Field Hockey And Lacrosse Coach Pediatric Cardiology 03/24/24 documented as of this encounter
--- OUTSIDE RECORDS SUMMARY | 2024-08-25 08:04 | XMS_ITS ---
Author Organization Unknown Address [address] [place] [phone] Phone Care Team Providers Care Chief Engineer Drilling And Recovery Name Role Phone JACK BORGES Attending Unavailable [...] BASIC METABOLIC PANEL - Ruth ect Date/Time: 08/18/2023 07:05 [facility] ID: [id number] [address] [place], [place], [phone] LOINC: 21153-1 Test Value Unit Reference Range Code Code System Flag FASTING NO BUN 10 mg/dL L=7 H=20 3094-0 LOINC CREATININE 0.80 mg/dL L=0.66 H=1.25 2160-0 LOINC GLUCOSE 107 mg/dL L=74 H=106 2345-7 LOINC H CALCIUM 9.6 mg/dL L=8.3 H=10.5 08546-3 LOINC SODIUM 138 mmol/L L=132 H=144 2951-2 LOINC POTASSIUM 4.5 mmol/L L=3.5 H=5.1 2823-3 LOINC CHLORIDE 99 mmol/L L=98 H=107 2075-0 LOINC CO2 34.0 mmol/L L=22.0 H=30.0 2028-9 LOINC H ANION GAP 10 L=10 H=20 82114-7 LOINC BUN/CREAT 12.5 3097-3 LOINC AGE 43 [address]64-2 LOINC eGFR NON-AFR 113 ml/min eGFR AFR AMER 137 ml/min VITAMIN B-12 - Collect Date/ Time: 08/18/2023 07:05 [facility] ID: [id number] [place], [phone] LOINC: 2132-9 Test Value Unit Reference Range Code Code System Flag VITAMIN B12 726 pq/mL L=239 H=931 HGB A1C -GLYCOHEMOGLOBIN - C ollect Date/Time: 08/18/2023 07:05 [facility] ID: [id number] [place], [place], [id number] LOINC: 4548-4 Test Value Unit Reference Range Code Code System Flag HGBA1C 5.8 % 4548-4 LOINC Social History Type Status Start Date End Date Code Code Syst em Smoking History Current every day smoker 184276216 SNOMED CT Sex Male Medications Medication Start Date End Date Route Frequency Dose Code Code System Medication Instructions Home Meds Aspirin 325MG Oral Tablet 08/18/2021 Unknown ORAL ONCE A DAY 325 MILLIGRAMS 861188 RxNorm TAKE 325 MILLIGRAMS ORAL ONCE A DAY Cetirizine HCl 10MG Oral Tablet 08/18/2021 Unknown ORAL ONCE A DAY 10 MILLIGRAMS 2563430 RxNorm TAKE 10 MILLIGRAMS ORAL ONCE A DAY DSS 100MG Oral Capsule, Liquid Filled 08/18/2021 Unknown ORAL AT BEDTIME 100 MILLIGRAMS RxNorm TAKE 100 MILLIGRAMS ORAL AT BEDTIME Montelukast Sodium 10MG Oral Tablet 08/18/2021 Unknown ORAL AT BEDTIME 10 MILLIGRAMS 855775 RxNorm TAKE 10 MILLIGRAMS ORAL AT BEDTIME Multivitamin with Iron Oral Tablet 08/18/2021 Unknown ORAL ONCE A DAY 1 TABLET RxNorm TAKE 1 TABLET ORAL ONCE A DAY PARoxetine HCl 12.5MG Oral Tablet, Extended Release 08/18/2021 Unknown ORAL ONCE A DAY 12.5 MILLIGRAMS 7823661 RxNorm TAKE 12.5 MILLIGRAMS ORAL ONCE A DAY PARoxetine HCl 37.5MG Oral Tablet, Extended Release 08/18/2021 Unknown ORAL DAILY AT 1600 37.5 MILLIGRAMS 2118527 RxNorm TAKE 37.5 MILLIGRAMS ORAL DAILY AT 1600 Vitamin D3 2000 IU Oral Capsule, Liquid Filled 08/18/2021 Unknown ORAL ONCE A DAY 1999 unit(s) RxNorm TAKE 2000 EACH ORAL ONCE A DAY tadalafil 20MG Oral Tablet 08/18/2021 Unknown ORAL ONCE A DAY 20 MILLIGRAMS 0445311 RxNorm TAKE 20 MILLIGRAMS ORAL ONCE A DAY Albuterol Sulfate 0.083% Inhalation Solution 09/18/2021 Unknown NEBULIZER NEEDED EVERY 4 HOURS 2.5 MILLIGRAMS 889733 RxNorm 2.5 MILLIGRAMS NEBULIZER NEEDED EVERY 4 HOURS Lisinopril 10MG Oral Tablet 09/18/2021 Unknown ORAL ONCE A DAY 10 MILLIGRAMS 570232 RxNorm TAKE 10 MILLIGRAMS ORAL ONCE A DAY Metoprolol Succinate 50MG Oral Tablet, Extended Release 09/18/2021 Unknown ORAL ONCE A DAY 50 MILLIGRAMS 155168 RxNorm TAKE 50 MILLIGRAMS ORAL ONCE A DAY FOR HIGH BLOOD PRESSURE risperiDONE 0.5MG Oral Tablet 09/18/2021 Unknown ORAL ONCE A DAY 0.25 MILLIGRAMS 729031 RxNorm TAKE 0.25 MILLIGRAMS ORAL ONCE A [...] Date Status Code Code System CHF active 02695270 SNOMED-CT PNEUMONIA 08/07/2021 active 779439590 SNOMED-CT Allergies and Adverse Reactions Allergy Substance Reaction Severity Start Date Concern Status Co de Code System POLYMYXIN B/TRIMETHOPRIM SULFATE Active 477702 Rx Norm Plan of Treatment COVID-19 Antibody Therapy Infusion 03/25 Encounters Encounter Diagnosis Start Date Code Code Sys tem Other retirement (current) drug therapy 08/18/2023 SNOMED-CT Personal Care Team Section Performer Name Performer Role Active Date Inactive Da te
--- OUTSIDE RECORDS SUMMARY | 2024-08-25 08:04 | XMS_ITS ---
Author Organization Unknown Address [address] [place] [phone] Phone Care Team Providers Care Benzene Still Utility Operator Name Role Phone VALERIEMADHAV LOTUS WHITAKERHNP Attending [...] BASIC METABOLIC PANEL - Ruth ect Date/Time: 09/29/2023 06:25 [facility] ID: [id number] [address] [place], [place], [id number] LOINC: 87658-3 Test Value Unit Reference Range Code Code System Flag FASTING YES BUN 14 mg/dL L=7 H=20 3094-0 LOINC CREATININE 0.80 mg/dL L=0.66 H=1.25 2160-0 LOINC GLUCOSE 106 mg/dL L=74 H=106 2345-7 LOINC CALCIUM 9.7 mg/dL L=8.3 H=10.5 22293-0 LOINC SODIUM 141 mmol/L L=132 H=144 2951-2 LOINC POTASSIUM 4.5 mmol/L L=3.5 H=5.1 2823-3 LOINC CHLORIDE 101 mmol/L L=98 H=107 2075-0 LOINC CO2 27.0 mmol/L L=22.0 H=30.0 2028-9 LOINC ANION GAP 18 L=10 H=20 41100-9 LOINC BUN/CREAT 17.5 3097-3 LOINC AGE 43 74851-8 LOINC eGFR NON-AFR 113 ml/min eGFR AFR AMER 137 ml/min Social History Type Status Start Date End Date Code Code Syst em Smoking History Current every day smoker 792126850 SNOMED CT Sex Male Medications Medication Start Date End Date Route Frequency Dose Code Code System Medication Instructions Home Meds Aspirin 325MG Oral Tablet 08/18/2021 Unknown ORAL ONCE A DAY 325 MILLIGRAMS 931293 RxNorm TAKE 325 MILLIGRAMS ORAL ONCE A DAY Cetirizine HCl 10MG Oral Tablet 08/18/2021 Unknown ORAL ONCE A DAY 10 MILLIGRAMS 3456219 RxNorm TAKE 10 MILLIGRAMS ORAL ONCE A DAY DSS 100MG Oral Capsule, Liquid Filled 08/18/2021 Unknown ORAL AT BEDTIME 100 MILLIGRAMS RxNorm TAKE 100 MILLIGRAMS ORAL AT BEDTIME Montelukast Sodium 10MG Oral Tablet 08/18/2021 Unknown ORAL AT BEDTIME 10 MILLIGRAMS 926887 RxNorm TAKE 10 MILLIGRAMS ORAL AT BEDTIME Multivitamin with Iron Oral Tablet 08/18/2021 Unknown ORAL ONCE A DAY 1 TABLET RxNorm TAKE 1 TABLET ORAL ONCE A DAY PARoxetine HCl 12.5MG Oral Tablet, Extended Release 08/18/2021 Unknown ORAL ONCE A DAY 12.5 MILLIGRAMS 1684550 RxNorm TAKE 12.5 MILLIGRAMS ORAL ONCE A DAY PARoxetine HCl 37.5MG Oral Tablet, Extended Release 08/18/2021 Unknown ORAL DAILY AT 1600 37.5 MILLIGRAMS 8384647 RxNorm TAKE 37.5 MILLIGRAMS ORAL DAILY AT 1600 Vitamin D3 2000 IU Oral Capsule, Liquid Filled 08/18/2021 Unknown ORAL ONCE A DAY 2000 unit(s) RxNorm TAKE 2000 EACH ORAL ONCE A DAY tadalafil 20MG Oral Tablet 08/18/2021 Unknown ORAL ONCE A DAY 20 MILLIGRAMS 4385876 RxNorm TAKE 20 MILLIGRAMS ORAL ONCE A DAY Albuterol Sulfate 0.083% Inhalation Solution 09/18/2021 Unknown NEBULIZER NEEDED EVERY 4 HOURS 2.5 MILLIGRAMS 006617 RxNorm 2.5 MILLIGRAMS NEBULIZER NEEDED EVERY 4 HOURS Lisinopril 10MG Oral Tablet 09/18/2021 Unknown ORAL ONCE A DAY 10 MILLIGRAMS 649625 RxNorm TAKE 10 MILLIGRAMS ORAL ONCE A DAY Metoprolol Succinate 50MG Oral Tablet, Extended Release 09/18/2021 Unknown ORAL ONCE A DAY 50 MILLIGRAMS 172648 RxNorm TAKE 50 MILLIGRAMS ORAL ONCE A DAY FOR HIGH BLOOD PRESSURE risperiDONE 0.5MG Oral Tablet 09/18/2021 Unknown ORAL ONCE A DAY 0.25 MILLIGRAMS 868582 RxNorm TAKE 0.25 MILLIGRAMS ORAL ONCE A [...] Date Status Code Code System CHF active 63273947 SNOMED-CT PNEUMONIA 08/07/2021 active 180336140 SNOMED-CT Allergies and Adverse Reactions Allergy Substance Reaction Severity Start Date Concern Status Co de Code System POLYMYXIN B/TRIMETHOPRIM SULFATE Active 163705 Rx Norm Plan of Treatment COVID-19 Antibody Therapy Infusion 03/25 Encounters Encounter Diagnosis Start Date Code Code Sys tem Other shelter (current) drug therapy 09/29/2023 SNOMED-CT Personal Care Team Section Performer Name Performer Role Active Date Inactive Da te
--- OUTSIDE RECORDS SUMMARY | 2024-08-25 08:04 | XMS_ITS | Clinical Summary ---
Author Organization [facility] Address [address] [place] [address] Care Team Providers Care Media Coordinator Name Role Phone Gokul Alberts MD Primary Care Provider Gabriela Morillo PA-C Unavailable Source Comments [facility],non-owned Affiliates and Associated Physician Practices is amultiple site organization consisting of ambulatory clinics and hospital sitesin [place], [place], [place] and [place]. This disclosure is being madepursuant to the Care Everywhere program and may not contain all information available regarding this patient. Last updated 18.[facility] Allergies Active Allergy Reactions Criticality Noted Date Comments Eye Drops Eye Redness 12/10/2018 Trimethoprim eye drops. Polymyxin B Eye Redness 09/02/2017 Eyelids swollen; photosensitivity; eyes watering. Medications * Be aware that medications may not be up to date on this document. Alwaysverify current medications with the patient. Medication Sig Dispensed Refills Start Date End Date Status aspirin EC (ECOTRIN) 325 MG tablet Take 81 mg by mouth once daily am Active furosemide (LASIX) 20 MG tablet Take 2 (two) tablets by mouth once daily Active acetaminophen (TYLENOL) 325 MG tablet Take 2 (two) tablets by mouth every 6 hours as needed Maximum allowable Acetaminophen amount = 4 Grams / 24 hours. Active amoxicillin (AMOXIL) 500 MG tablet Take 1 (one) tablet by mouth 1 Hour prior to Dental Appointment Active Vitamin D3 (CHOLECALCIFERO L) 2000 UNITS capsule Take 1 (one) capsule by mouth once daily Active multivitamin with iron (ONE A DAY WITH IRON) tablet Take 1 (one) tablet by mouth once daily Active docusate sodium (COLACE) 100 MG capsule Take 1 (one) capsule by mouth at bedtime Active PARoxetine CR 24hr (PAXIL-CR) 37.5 MG tablet Take 1 (one) tablet by mouth once daily Take 37.5 mg by mouth in the AM and 12.5 mg in the PM. 09/03/2018 Active cetirizine (ZYRTEC) 10 MG tablet Take 1 (one) tablet by mouth once daily Active risperiDONE (RISPERDAL) 0.5 MG tablet 09/07/2019 Active empagliflozin (Jardiance) 10 MG tabletIndicatio ns:Tetralogy of Fallot (HCC),Diastolic dysfunction, left ventricle Take 1 (one) tablet by mouth once daily 30 tablet 11 11/30/2023 Active azelastine (Astepro) 205.5 MCG/SPRAY nasal spray [place] 2 (two) sprays into each nostril 2 times daily Active furosemide (Lasix) 20 MG tablet Take 2 (two) tablets by mouth as needed (swelling or 3-4 lb weight gain) Take lasix 40 mg in the evenings for swelling or 3-4 lb weight gain in addition to daily lasix 40 mg. 30 tablet 3 04/26/2024 Active spironolactone (Aldactone) 50 MG tablet Take 1 (one) tablet by mouth once daily 90 tablet 3 05/13/2024 Active sacubitril-vals bg (Entresto) 24-26 MG tablet Take 1 (one) tablet by mouth 2 times daily 60 tablet 3 06/16/2024 Active sildenafil (Revatio) 20 MG tabletIndicatio ns:Tetralogy of Fallot (HCC) TAKE 1 TABLET BY MOUTH 3 TIMES DAILY (7AM-4PM-8PM) 90 tablet 10 08/11/2024 Active sildenafil (Revatio) 20 MG tabletIndicatio ns:Tetralogy of Fallot (HCC) TAKE 1 TABLET BY MOUTH 3 TIMES DAILY (7AM-4PM-8PM) 90 tablet 10 08/17/2023 Discontinued Active Problems Problem Noted Date Diagnosed Date Respiratory distress 07/12/2010 Overview (07/13/2010): Assessment: [place] is s/p surgery on 07/05 and presented with resp distress and an O2 requirement. CXR does not reveal an area of consolidation. Would suspect atelectasis (possible secondary to post-op pain but [place] reports his pain is well controlled). Additionally, it is unclear if [place] had been taking his usual Lasix. However, his BNP was normal at the OSH. A pulmonary embolus would be a possibility but the D- Dimer and rapid resolution of his symptoms and O2 requirement after Lasix would make this less likely. Echocardiogram was normal. Patient is stable on RA over the last 24 h. No respiratory distress. No chest pain. Plan: Patient will be transferred to ortho surgery (Dr. Patle would like to monitor the pt until Thursday) Tetralogy of Fallot 01/25/2010 Scoliosis (and kyphoscoliosis), idiopathic 12/19 Overview (02/22/2021): O 2020 Encounters Date Type Department Care Team Description 08/24/2024 Telephone [facility] - Pulmonology [address] [place] [phone] Tabby Silva, RN Follow-up 08/10/2024 Refill [facility] at [address] [address] Kim Ngo MD Refill Request 07/14/2024 Telephone [facility] - Pulmonology [address] [place] [phone] Tabby Silva, RN Follow-up 07/05/2024 11:30 AM ENGINE BUILDUP MECHANIC Office Visit [facility] - Pulmonology [address] [place] [phone] Segundo Gonzalez MD Pulmonary hypertension (Primary Dx); Tetralogy of Fallot; Cor pulmonale; Scoliosis (and kyphoscoliosis), idiopathic 07/05/2024 Travel 06/16/2024 11:00 AM ENGINE BUILDUP MECHANIC - 06/16/2024 4:10 PM ENGINE BUILDUP MECHANIC Hospital [facility] [address] [place] [address] Gabriela Morillo PA-C Discharge Disposition: Home or Self Care from Last 3 Months Family History Medical History Relation Name Comments Allergy (Severe) Neg Hx Anesthesia Reaction Neg Hx Arrhythmia Neg Hx Asthma Neg Hx Broken Bones Neg Hx CVA<55(male) Neg Hx CVA<65(female) Neg Hx Cancer Neg Hx Cardiomyopathy Neg Hx Clotting Disorder Neg Hx Collagen Disease Neg Hx Congenital Heart defect Neg Hx Diabetes Neg Hx Dislocations Neg Hx Heart Surgery Neg Hx Hypercholesterolemia Neg Hx Hypertension Neg Hx Long QT Syndrome Neg Hx CA Neg Hx CA<55(male) Neg Hx CA<65(female) Neg Hx Marfan Syndrome Neg Hx Osteoporosis Neg Hx Pacemaker Neg Hx Rheumatological Disease Neg Hx Scoliosis Neg Hx Severe Sprains Neg Hx Sickle Cell Anemia Neg Hx Sudd. <30 Neg Hx Social History Tobacco Use Types Packs/Day Years Used Date Smoking Tobacco: Never Passive Smoke Exposure: Never Smokeless Tobacco: Never Tobacco Cessation:Counseling Given: Not Answered Alcohol Use Standard Drinks/Week Comments Never 0 (1 standard drink = 0.6 oz pur e alcohol) AUDIT-C Answer Date Recorded Q1: How often do you have a drink containing alcohol? Never 11/25/2023 Q2: How many drinks containi ng alcohol do you have on a typical day when you are drinking? Patient does not drink Q3: How often do you have si x or more drinks on one occasion? Never 11/25/2023 Sex and Gender Information Value Date Recorded Sex Assigned at Not on file Gender Identity Not on file Sexual Orientation Not on file Last Filed Vital Signs Vital Sign Reading Time Taken Comments Blood Pressure 100/67 07/05/2024 11:05 AM ENGINE BUILDUP MECHANIC Pulse 89 07/05/2024 11:05 AM ENGINE BUILDUP MECHANIC Temperature 36.4 C (97.6 F) 11/25/2023 7:56 AM CDT Respiratory Rate 17 07/05/2024 11:05 AM ENGINE BUILDUP MECHANIC Oxygen Saturation 94% 07/05/2024 11:05 AM ENGINE BUILDUP MECHANIC Inhaled Oxygen Concentration 100% 11/25/2023 2 :30 PM CDT Weight 72.1 kg (159 lb) 07/05/2024 11:05 AM ENGINE BUILDUP MECHANIC Height 165.1 cm (5' 5 ) 07/05/2024 11:05 AM ENGINE BUILDUP MECHANIC Body Mass Index 26.46 07/05/2024 11:05 AM ENGINE BUILDUP MECHANIC Plan of Treatment Upcoming Encounters Date Type Department Care Team (Late st Contact Info) Description 09/22/2024 9:30 AM CDT Appointment [facility] at [address] [address] 09/22/2024 10:00 AM CDT Appointment [facility] at [address] [address] Samuel Vaughn MD [address] [place] [phone] 10/18/2024 10:30 AM CDT Office Visit [facility] - Pulmonology [address] [place] [address], [place] [phone] Segundo Gonzalez MD [address] [place] [address] 2L DIV OF PULMONARY/[place] [phone] Health Maintenance Due Date Last Done Comments LIPID TESTING 1982 MEDICARE AWV 12 MONTHS 1982 HIV SCREENING 1997 HEPATITIS C SCREENING 08/03/2000 DTAP/TDAP/TD VACCINES (1 - Tdap) 2001 HEPATITIS B VACCINE (1 of 3 - 19+ 3-dose series) 2001 PNEUMOCOCCAL VACCINE (1 of 2 - PCV) 2001 COVID-19 VACCINE ( - season) 2024 05/07/2021, 07/05/2020, 06/14/2020 DEPRESSION SCREENING 05/25/2024 SCREENING FOR DIABETES 11/24/2026 , 12/16/2018, 07/08/2010, Additional history exists ZOSTER VACCINE (1 of 2) 2032 INFLUENZA VACCINE Completed 02/03/2024, , 01/29/2022, Additional history exists HIB VACCINE Aged Out No longer eligi ble based on patient's age to complete this topic HPV VACCINE Aged Out No longer eligi ble based on patient's age to complete this topic MENINGOCOCCAL (Group B) VACCINE SHARED DECISION-MAKING Aged Out No longer eligible based on patient's age to complete this topic MENINGOCOCCAL GROUPS A/C/Y/W VACCINE Aged Out No longer eligible based on patient's age to complete this topic Procedures Procedure Name Priority Date/Time Associated Diagnosis Comments COMPREHENSIVE METABOLIC PANEL STAT 11/25/2023 10:08 AM CDT Pulmonary hypertension from Last 3 Months or Most Recently Relevant to Health Maintenance Results * (ABNORMAL) COMPREHENSIVE METABOLIC PANEL (11/25/2023 10:08 AM CDT) BUN 12 7 - 26 mg/dL 11/25/2023 10:50 AM [facility] Creatinine 0.67(L) 0.71 - 1.16 mg/dL 11/25/2023 10:50 AM [facility] Sodium 137 136 - 145 mmol/L 11/25/2023 10:50 AM [facility] Potassium 4.2 3.5 - 4.5 mmol/L 11/25/2023 10:50 AM [facility] Chloride 105 98 - 107 mmol/L 11/25/2023 10:50 AM [facility] CO2 27 22 - 29 mmol/L 11/25/2023 10:50 AM [facility] Glucose 149(H) 70 - 115 mg/dL 11/25/2023 10:50 AM [facility] Calcium 9.3 8.4 - 10.2 mg/dL 11/25/2023 10:50 AM [facility] Protein Total 6.3 6.0 - 8.3 g/dL 11/25/2023 10:50 AM [facility] Albumin 3.4 3.4 - 5.0 g/dL 11/25/2023 10:50 AM [facility] Bilirubin Total 0.5 0.2 - 1.2 mg/dL 11/25/2023 10:50 AM [facility] Alkaline Phosphatase 103 40 - 150 U/L 11/25/2023 10:50 AM [facility] ALT 21 5 - 55 U/L 11/25/2023 10:50 AM [facility] AST 18 5 - 34 U/L 11/25/2023 10:50 AM [facility] Anion Gap 5(L) 6 - 16 11/25/2023 10:50 AM [facility] BUN/Creatinine Ratio 18 7 - 23 11/25/2023 10:50 AM [facility] Osmolality Calculated 287 275 - 295 mOsm/kg 11/25/2023 10:50 AM [facility] Albumin/Globulin Ratio 1.2 1.1 - 2.3 11/25/2023 10:50 AM [facility] eGFR by CKD-EPI >90 >=90 mL/min/1.7 3 m2 11/25/2023 10:50 AM [facility] Blood BLOOD SPECIMEN / Unknown Venipuncture / Unknown 11/25/2023 10:08 AM T 11/25/2023 10:13 AM [facility] Barby Palma MD LAB - C HEMISTRY ORDERABLES [facility] [address] [place] [address], [facility] [phone] from Last 3 Months or Most Recently Relevant to Health Maintenance Advance Directives * Full Code (Latest Code Status on File) Date Activated Date Inactivated Comments 12/16/2018 1:19 PM 12/16/2018 6:58 PM Care Teams Media Coordinator Relationship Specialty Start Date End Date Gokul Alberts MD [address] [place] [phone] PCP - General 09/04/18 Gabriela Morillo PA-C [address] [place] [address] Physician Helmet Coverer Pediatric Cardiology 03/24/24
--- OUTSIDE RECORDS SUMMARY | 2024-08-25 08:04 | XMS_ITS ---
Author Organization Unknown Address [address] [place] [phone] Phone Care Team Providers Care Security And Privacy Consultant Name Role Phone JACK BORGES Attending Unavailable ABO Walker Primary Unavailable Immunization Immunization Date Status [...] BASIC METABOLIC PANEL - Ruth ect Date/Time: 05/05/2023 07:38 [facility] ID: [id number] [address] [place], [place], [phone] LOINC: 67677-3 Test Value Unit Reference Range Code Code System Flag FASTING YES BUN 13 mg/dL L=7 H=20 3094-0 LOINC CREATININE 0.70 mg/dL L=0.66 H=1.25 2160-0 LOINC GLUCOSE 113 mg/dL L=74 H=106 2345-7 LOINC H CALCIUM 9.6 mg/dL L=8.3 H=10.5 34939-3 LOINC SODIUM 138 mmol/L L=132 H=144 2951-2 LOINC POTASSIUM 4.5 mmol/L L=3.5 H=5.1 2823-3 LOINC CHLORIDE 101 mmol/L L=98 H=107 2075-0 LOINC CO2 28.0 mmol/L L=22.0 H=30.0 2028-9 LOINC ANION GAP 14 L=10 H=20 70904-8 LOINC BUN/CREAT 18.6 3097-3 LOINC AGE 42 17901-8 LOINC eGFR NON-AFR 133 ml/min eGFR AFR AMER 161 ml/min Social History Type Status Start Date End Date Code Code Syst em Smoking History Current every day smoker 550387620 SNOMED CT Sex Male Medications Medication Start Date End Date Route Frequency Dose Code Code System Medication Instructions Home Meds Aspirin 325MG Oral Tablet 08/18/2021 Unknown ORAL ONCE A DAY 325 MILLIGRAMS 934690 RxNorm TAKE 325 MILLIGRAMS ORAL ONCE A DAY Cetirizine HCl 10MG Oral Tablet 08/18/2021 Unknown ORAL ONCE A DAY 10 MILLIGRAMS 5195977 RxNorm TAKE 10 MILLIGRAMS ORAL ONCE A DAY DSS 100MG Oral Capsule, Liquid Filled 08/18/2021 Unknown ORAL AT BEDTIME 100 MILLIGRAMS RxNorm TAKE 100 MILLIGRAMS ORAL AT BEDTIME Montelukast Sodium 10MG Oral Tablet 08/18/2021 Unknown ORAL AT BEDTIME 10 MILLIGRAMS 753781 RxNorm TAKE 10 MILLIGRAMS ORAL AT BEDTIME Multivitamin with Iron Oral Tablet 08/18/2021 Unknown ORAL ONCE A DAY 1 TABLET RxNorm TAKE 1 TABLET ORAL ONCE A DAY PARoxetine HCl 12.5MG Oral Tablet, Extended Release 08/18/2021 Unknown ORAL ONCE A DAY 12.5 MILLIGRAMS 6325881 RxNorm TAKE 12.5 MILLIGRAMS ORAL ONCE A DAY PARoxetine HCl 37.5MG Oral Tablet, Extended Release 08/18/2021 Unknown ORAL DAILY AT 1600 37.5 MILLIGRAMS 5150132 RxNorm TAKE 37.5 MILLIGRAMS ORAL DAILY AT 1600 Vitamin D3 2000 IU Oral Capsule, Liquid Filled 08/18/2021 Unknown ORAL ONCE A DAY 2000 unit(s) RxNorm TAKE 2000 EACH ORAL ONCE A DAY tadalafil 20MG Oral Tablet 08/18/2021 Unknown ORAL ONCE A DAY 20 MILLIGRAMS 0731292 RxNorm TAKE 20 MILLIGRAMS ORAL ONCE A DAY Albuterol Sulfate 0.083% Inhalation Solution 09/18/2021 Unknown NEBULIZER NEEDED EVERY 4 HOURS 2.5 MILLIGRAMS 865662 RxNorm 2.5 MILLIGRAMS NEBULIZER NEEDED EVERY 4 HOURS Lisinopril 10MG Oral Tablet 09/18/2021 Unknown ORAL ONCE A DAY 10 MILLIGRAMS 559269 RxNorm TAKE 10 MILLIGRAMS ORAL ONCE A DAY Metoprolol Succinate 50MG Oral Tablet, Extended Release 09/18/2021 Unknown ORAL ONCE A DAY 50 MILLIGRAMS 407011 RxNorm TAKE 50 MILLIGRAMS ORAL ONCE A DAY FOR HIGH BLOOD PRESSURE risperiDONE 0.5MG Oral Tablet 09/18/2021 Unknown ORAL ONCE A DAY 0.25 MILLIGRAMS 332019 RxNorm TAKE 0.25 MILLIGRAMS ORAL ONCE A [...] Date Status Code Code System CHF active 95927040 SNOMED-CT PNEUMONIA 08/07/2021 active 011983682 SNOMED-CT Allergies and Adverse Reactions Allergy Substance Reaction Severity Start Date Concern Status Co de Code System POLYMYXIN B/TRIMETHOPRIM SULFATE Active 375996 Rx Norm Plan of Treatment COVID-19 Antibody Therapy Infusion 03/25 Encounters Encounter Diagnosis Start Date Code Code Sys tem Other senior care (current) drug therapy 05/05/2023 SNOMED-CT Personal Care Team Section Performer Name Performer Role Active Date Inactive Da zara
--- OUTSIDE RECORDS SUMMARY | 2024-08-25 08:04 | XMS_ITS ---
Author Organization [facility] Care Team Providers Care Etl Database Developer Name Role Phone Gokul Alberts Unavailable Unavailable Jori Chu Unavailable Unavailable Allergies and adverse reactions Code CodeSystem Substance Reaction Severity StartDate Concern Status 68852 RXNORM Trimethoprim Moderate 08/18/2021 active 8536 RXNORM Polymyxin B Moderate 08/18/2021 active Bees Moderate 08/18/2021 active Care Team Name Role Address Phone Organization Dates Gokul Alberts PCP [address], [address], [facility] (Office): : [facility] 09/23/2021 - 10/14/2021 Jori Chu Attending Physician [address] (Office): : [facility] 09/23/2021 - 10/14/2021 Immunizations Immunization Status Vaccine Details Vaccine Code CodeSystem Geramin e Notes TB 1 Step Mantoux (PPD) completed tuberculin skin test; unspecified formulation lotNumber: [id number] expiry: 11/08/2022 Mfg: Tubersol INJ 5/0.1ML Given 0.1 ml Left Forearm intradermally 98 CVX created date: 08/26/2021 consent date: 08/25/2021 administere d date: 08/26/2021 TB 1 Step Mantoux (PPD) completed tuberculin skin test; unspecified formulation lotNumber: [id number] expiry: 11/08/2022 Mfg: Tubersol INJ 5/0.1ML Given 0.1 ml Right Forearm intradermally 98 CVX created date: 08/26/2021 consent date: 08/25/2021 administere d date: 08/19/2021 TB 1 Step Mantoux (PPD) completed tuberculin skin test; unspecified formulation lotNumber: [id number] expiry: 11/08/2022 Mfg: Tubersol INJ 5/0.1ML Given 0.1 ml Right Forearm intradermally 98 CVX created date: 08/19/2021 consent date: 08/18/2021 administere d date: 08/19/2021 TB 2 Step Mantoux Skin Test completed tuberculin skin test; unspecified formulation lotNumber: [id number] expiry: 11/08/2022 Mfg: Tubersol INJ 5/0.1ML Given 0.1 ml Right Forearm intradermally Step 1 of Multi-step with next step required 98 CVX created date: 08/26/2021 consent date: 08/25/2021 administere d date: 08/19/2021 SARS-COV-2 (COVID-19) completed SARS-COV-2 (COVID-19) vaccine, mRNA, spike protein, LNP, preservative free, 100 mcg/0.5mL dose or 50 mcg/0.25mL dose Step 1 of Multi-step with next step required 207 CVX created date: 08/19/2021 administere d date: 05/07/2021 SARS-COV-2 (COVID-19) completed SARS-COV-2 (COVID-19) vaccine, mRNA, spike protein, LNP, preservative free, 30 mcg/0.3mL dose Step 2 of Multi-step with next step required 208 CVX created date: 08/19/2021 administere d date: 07/05/2020 SARS-COV-2 (COVID-19) completed SARS-COV-2 (COVID-19) vaccine, mRNA, spike protein, LNP, preservative free, 30 mcg/0.3mL dose Step 1 of Multi-step with next step required 208 CVX created date: 08/19/2021 administere d date: 06/14/2020 Mental Status Section Date Assessment Total Score Description 10/14/2021 BIMS 12 moderate cognit joseph impairment CAM 0 No delirium ind icated PHQ-9 01 minimal depress ion 09/30/2021 BIMS 11 moderate cognit joseph impairment CAM 0 No delirium ind icated PHQ-9 03 minimal depress ion Problems Problem # Description Date of onset Resolved Date Code CodeSystem Concern Status 1 ABNORMAL POSTURE 09/24/[address] a ctive 2 COGNITIVE COMMUNICATION DEFICIT 09/24/[address] active 3 DIFFICULTY IN WALKING, NOT ELSEWHERE CLASSIFIED 09/24/[address] active 4 HYPERTENSIVE HEART DISEASE WITH HEART FAILURE 09/23/[address] active 5 UNSPECIFIED DIASTOLIC (CONGESTIVE) HEART FAILURE 09/23/[address] active 6 ABNORMAL POSTURE 08/20/2021 09/22/2021 38777547 SNOMED C T completed 7 CHRONIC OBSTRUCTIVE PULMONARY DISEASE, UNSPECIFIED 08/18/[address] active 8 PNEUMONIA, UNSPECIFIED ORGANISM 08/18/[address] active 9 PULMONARY HYPERTENSION, UNSPECIFIED 08/18/[address] active 10 VITAMIN D DEFICIENCY, UNSPECIFIED 08/18/[address] active 11 COGNITIVE COMMUNICATION DEFICIT 08/16/2021 09/22/[address] completed 12 DIFFICULTY IN WALKING, NOT ELSEWHERE CLASSIFIED 08/16/2021 09/22/[address] completed 13 ALLERGIC RHINITIS, UNSPECIFIED 08/15/[address] active 14 ANXIETY DISORDER, UNSPECIFIED 08/15/[address] active 15 CARDIAC MURMUR, UNSPECIFIED 08/15/[address] active 16 CONSTIPATION, UNSPECIFIED 08/15/[address] active 17 IMPULSE DISORDER, UNSPECIFIED 08/15/[address] active 18 MAJOR DEPRESSIVE DISORDER, RECURRENT, UNSPECIFIED 08/15/[address] active 19 MODERATE INTELLECTUAL DISABILITIES 08/15/[address] active 20 OTHER DISORDERS OF LUNG 08/15/[address] active 21 PERSONAL HISTORY OF COVID-19 08/15/[address] active 22 PRESENCE OF CORONARY ANGIOPLASTY IMPLANT AND GRAFT 08/15/[address] active 23 SCOLIOSIS, UNSPECIFIED 08/15/[address] active 24 TETRALOGY OF FALLOT 08/15/[address] active Reason for Referral No Reasons for Referral Entered Social History Social History Observation Description Start Date End Date Code Code System Current Smoking Status Tobacco smoking consumption unknown 314739937 SNOMED CT Sex Assigned At Male 1980 13159-0 [facility] Vital Signs Code Code System Vitals Name Values and Units Timing Information 59270-2 [facility] O2 % BldC Oximetry Value=97.0 Units= % 10/14/2021 9279-1 [facility] Respiratory Rate Value=18.0 Units=/m in 10/14/2021 8867-4 [facility] Heart rate Value=86.0 Units=/min 8310-5 [facility] Body Temperature Value=98.3 Units= F 10/14/2021 8462-4 [facility] Blood Pressure-Diastolic Value=67 Un its=mmHg 10/14/2021 8480-6 [facility] Blood Pressure-Systolic Jkrvg=074 Un its=mmHg 10/14/2021 29092-4 INC Pain Level Value=0.0 10/14/2021 46631-0 LOINC Weight Nantp=028.6 Units=Lbs 8302-2 LOINC Height Value=63.0 Units=Inches 09/23/2021
--- OUTSIDE RECORDS SUMMARY | 2024-08-25 08:04 | XMS_ITS ---
Author Organization Unknown Address [address] [place] [phone] Phone Care Team Providers Care Meter Reader Chief Name Role Phone VALERIEMADHAV LOTUS WHITAKERHNP Attending [...] mcg/0.5 mL 02/01/2024 Completed 312 CVX Results LIPID PANEL - Collect Date/T ayaz: 06/02/2023 07:10 [facility] ID: [id number] [place] [address], [phone] LOINC: 01173-6 Test Value Unit Reference Range Code Code System Flag FASTING NO CHOLESTEROL 171 mg/dL L=0 H=200 3-3 LOINC TRIGLYCERIDE 75 mg/dL L=0 H=150 1-8 LOINC HDL 55 mg/dL L=40 H=60 5-9 LOINC LDL 97 mg/dL 9-1 LOINC TSH - Collect Date/Time: 01/2024 07:10 [facility] ID: [id number] [place] [address], [id number] LOINC: 70202-9 Test Value Unit Reference Range Code Code System Flag TSH. 2.830 uIU/L L=0.470 H=4.680 98659-3 LOINC T4 FREE - Collect Date/Time: 06/02/2023 07:10 [facility] ID: [id number] [place] [address], [id number] LOINC: 3024-7 Test Value Unit Reference Range Code Code System Flag T4, FREE 1.43 ng/dL L=0.78 H=2.19 3024-7 LOINC COMPREHENSIVE METABOLIC PANE L - Collect Date/Time: 06/02/2023 07:10 [facility] ID: [id number] [address] [place], [place], [phone] LOINC: 27745-7 Test Value Unit Reference Range Code Code System Flag FASTING NO BUN 12 mg/dL L=7 H=20 3094-0 LOINC CREATININE 0.80 mg/dL L=0.66 H=1.25 2160-0 LOINC GLUCOSE 114 mg/dL L=74 H=106 2345-7 LOINC H SODIUM 140 mmol/L L=132 H=144 2951-2 LOINC POTASSIUM 4.2 mmol/L L=3.5 H=5.1 2823-3 LOINC CHLORIDE 99 mmol/L L=98 H=107 2075-0 LOINC CO2 30.0 mmol/L L=22.0 H=30.0 2028-9 LOINC ANION GAP 15 L=10 H=20 06006-9 LOINC OSMOLALITY 291 mOs/kG L=280 H=296 63760-8 LOINC BUN/CREAT 15.0 3097-3 LOINC CALCIUM 9.3 mg/dL L=8.3 H=10.5 14554-8 LOINC AST 36 U/L L=15 H=46 1920-8 LOINC ALT 41 U/L L=9 H=72 1742-6 LOINC ALKALINE PHOS 136 U/L L=38 H=126 6768-6 LOINC H TOTAL BILI 0.8 mg/dL L=0.2 H=1.3 1975-2 LOINC ALBUMIN 4.2 G/dL L=3.5 H=5.0 1751-7 LOINC TOTAL PROTEIN 7.2 g/L L=6.3 H=8.2 2885-2 LOINC A/G RATIO 1.4 59191-8 LOINC AGE 42 45933-2 LOINC eGFR NON-AFR 114 ml/min eGFR AFR AMER 138 ml/min FREE T3 - Collect Date/Time: 06/02/2023 07:10 [facility] ID: [id number] [address] [place], [place], [phone] LOINC: 3051-0 Test Value Unit Reference Range Code Code System Flag FREE T3 4.23 pg/mL L=2.77 H=5.27 3051-0 LOINC 25 HYDROXY VITAMIN D - Colle ct Date/Time: 06/02/2023 07:10 [facility] ID: [id number] [address] [place], [place], [phone] LOINC: Test Value Unit Reference Range Code Code System Flag VITAMIN D 45.9 ng/ml L=30.0 H=100 92960-2 LOINC CBC W/ DIFF - Collect Date/T ayaz: 06/02/2023 07:10 [facility] ID: [id number] [address] [place], [place], [phone] LOINC: 24715-6 Test Value Unit Reference Range Code Code System Flag WBC 7.9 10^3uL L=4.8 H=10.8 RBC 4.54 10^6uL L=4.60 H=6.20 L HEMOGLOBIN 14.6 g/dL L=14.0 H=18.0 718-7 LOINC HEMATOCRIT 44.8 VOL% L=42.0 H=52.0 4544-3 LOINC MCV 98.7 fL L=80.0 H=94.0 H MCH 32.2 pg L=27.0 H=32.0 H MCHC 32.6 g/dL L=32.0 H=36.0 PLATELETS 251 10^3uL L=100 H=400 78328-9 LOINC RDW 12.3 % L=11.7 H=15.5 %GRAN 58.6 % L=40.0 H=70.0 77170-5 LOINC %LYMPH 27.0 % L=20.0 H=45.0 736-9 LOINC %MONO 10.1 % L=2.0 H=10.0 25095-7 LOINC H %EOS 3.4 % L=0.0 H=6.0 713-8 LOINC %BASO 0.6 % L=0.0 H=3.0 706-2 LOINC #NEUT 4.6 10^3uL L=1.9 H=7.6 16072-2 LOINC #LYMPH 2.1 10^3uL L=0.9 H=4.9 44760-4 LOINC #MONO 0.8 10^3uL L=0.1 H=0.9 91890-8 LOINC #EOS 0.3 10^3uL L=0.0 H=0.6 712-0 LOINC #BASO 0.05 10^3uL L=0.00 H=0.10 76677-1 LOINC #IM GRANS 0.0 10^3uL L=0.0 H=7.0 67872-5 LOINC %IM GRANS 0.3 % L=0.0 H=5.0 44402-5 LOINC %NRB 0.0 L=0.0 H=0.2 09940-6 LOINC #NRB 0.000 L=0.000 H=0.012 96771-4 LOINC MANUAL DIFF NOT INDICATED RBC MORPH NOT INDICATED Social History Type Status Start Date End Date Code Code Syst em Smoking History Current every day smoker 462127707 SNOMED CT Sex Male Medications Medication Start Date End Date Route Frequency Dose Code Code System Medication Instructions Home Meds Aspirin 325MG Oral Tablet 08/18/2021 Unknown ORAL ONCE A DAY 325 MILLIGRAMS 486393 RxNorm TAKE 325 MILLIGRAMS ORAL ONCE A DAY Cetirizine HCl 10MG Oral Tablet 08/18/2021 Unknown ORAL ONCE A DAY 10 MILLIGRAMS 7519659 RxNorm TAKE 10 MILLIGRAMS ORAL ONCE A [...] Unknown ORAL ONCE A DAY 12.5 MILLIGRAMS 9280219 RxNorm TAKE 12.5 MILLIGRAMS ORAL ONCE A DAY PARoxetine HCl 37.5MG Oral Tablet, Extended Release 08/18/2021 Unknown ORAL DAILY AT 1600 37.5 MILLIGRAMS 4657594 RxNorm TAKE 37.5 MILLIGRAMS ORAL DAILY AT 1600 Vitamin D3 2000 IU Oral Capsule, Liquid Filled 08/18/2021 Unknown ORAL ONCE A DAY 2000 unit(s) RxNorm TAKE 2000 EACH ORAL ONCE A DAY tadalafil 20MG Oral Tablet 08/18/2021 Unknown ORAL ONCE A DAY 20 MILLIGRAMS 7389419 RxNorm TAKE 20 MILLIGRAMS ORAL ONCE A DAY Albuterol Sulfate 0.083% Inhalation Solution 09/18/2021 Unknown NEBULIZER NEEDED EVERY 4 HOURS 2.5 MILLIGRAMS 067960 RxNorm 2.5 MILLIGRAMS NEBULIZER NEEDED EVERY 4 HOURS Lisinopril 10MG Oral Tablet 09/18/2021 Unknown ORAL ONCE A DAY 10 MILLIGRAMS 450456 RxNorm TAKE 10 MILLIGRAMS ORAL ONCE A DAY Metoprolol Succinate 50MG Oral Tablet, Extended Release 09/18/2021 Unknown ORAL ONCE A DAY 50 MILLIGRAMS 971563 RxNorm TAKE 50 MILLIGRAMS ORAL ONCE A DAY FOR HIGH BLOOD PRESSURE risperiDONE 0.5MG Oral Tablet 09/18/2021 Unknown ORAL ONCE A DAY 0.25 MILLIGRAMS 437375 RxNorm TAKE 0.25 MILLIGRAMS ORAL ONCE A [...] Date Status Code Code System CHF active 61625974 SNOMED-CT PNEUMONIA 08/07/2021 active 099342790 SNOMED-CT Allergies and Adverse Reactions Allergy Substance Reaction Severity Start Date Concern Status Co de Code System POLYMYXIN B/TRIMETHOPRIM SULFATE Active 394664 Rx Norm Plan of Treatment COVID-19 Antibody Therapy Infusion 03/25 Encounters Encounter Diagnosis Start Date Code Code Sys tem Other longterm (current) drug therapy 06/02/2023 SNOMED-CT Personal Care Team Section Performer Name Performer Role Active Date Inactive Da te
--- OUTSIDE RECORDS SUMMARY | 2024-08-25 08:05 | XMS_ITS | Encounter Summary ---
Author Organization [facility] Address [facility] [place] [address] Care Team Providers Care Scale Attendant Name Role Phone Randal Ferraro MD Primary Care Provider Gokul Alberts MD Primary Care Provider [phone] Encounter Details Date Type Department Care Team (Late st Contact Info) Description 10/30/2018 Abstract [facility]FL CONVERSION [address] [place] [address] , Generic Conversion, Social History Tobacco Use Types Packs/Day Years Used Date Smoking Tobacco: Never Assessed Sex and Gender Information Value Date Recorded Sex Assigned at Not on file Legal Sex Male 8:18 PM CDT Gender Identity Not on file Sexual Orientation Not on file documented as of this encounter Plan of Treatment Not on file documented as of this encounter Visit Diagnoses Not on filedocumented in this encounter Care Teams Scale Attendant Relationship Specialty Start Date End Date Randal Ferraro MD PCP - General FAMILY PRACTICE 09/11/20 09/17/20 Gokul Alberts MD PCP - General FAMILY PRACTICE 09/18/20 documented as of this encounter
--- OUTSIDE RECORDS SUMMARY | 2024-08-25 08:05 | XMS_ITS ---
Author Organization Unknown Address [address] [place] [phone] Phone Care Team Providers Care Nutrition Assistant Name Role Phone VALERIEMADHAV LOTUS WHITAKERHNP Attending [...] BASIC METABOLIC PANEL - Ruth ect Date/Time: 05/03/2024 07:45 [facility] ID: [id number] [address] [place], [place], [id number] LOINC: 90723-5 Test Value Unit Reference Range Code Code System Flag FASTING NO BUN 10 mg/dL L=7 H=20 3094-0 LOINC CREATININE 0.70 mg/dL L=0.66 H=1.25 2160-0 LOINC GLUCOSE 132 mg/dL L=74 H=106 2345-7 LOINC H CALCIUM 9.8 mg/dL L=8.3 H=10.5 73028-9 LOINC SODIUM 136 mmol/L L=132 H=144 2951-2 LOINC POTASSIUM 4.6 mmol/L L=3.5 H=5.1 2823-3 LOINC CHLORIDE 100 mmol/L L=98 H=107 2075-0 LOINC CO2 25.0 mmol/L L=22.0 H=30.0 2028-9 LOINC ANION GAP 16 L=10 H=20 96135-8 LOINC BUN/CREAT 14.3 3097-3 LOINC AGE 43 19460-1 LOINC eGFR NON-AFR 132 ml/min eGFR AFR AMER 160 ml/min Social History Type Status Start Date End Date Code Code Syst em Smoking History Current every day smoker 936883851 SNOMED CT Sex Male Medications Medication Start Date End Date Route Frequency Dose Code Code System Medication Instructions Home Meds Aspirin 325MG Oral Tablet 08/18/2021 Unknown ORAL ONCE A DAY 325 MILLIGRAMS 916480 RxNorm TAKE 325 MILLIGRAMS ORAL ONCE A DAY Cetirizine HCl 10MG Oral Tablet 08/18/2021 Unknown ORAL ONCE A DAY 10 MILLIGRAMS 6692332 RxNorm TAKE 10 MILLIGRAMS ORAL ONCE A DAY DSS 100MG Oral Capsule, Liquid Filled 08/18/2021 Unknown ORAL AT BEDTIME 100 MILLIGRAMS RxNorm TAKE 100 MILLIGRAMS ORAL AT BEDTIME Montelukast Sodium 10MG Oral Tablet 08/18/2021 Unknown ORAL AT BEDTIME 10 MILLIGRAMS 355856 RxNorm TAKE 10 MILLIGRAMS ORAL AT BEDTIME Multivitamin with Iron Oral Tablet 08/18/2021 Unknown ORAL ONCE A DAY 1 TABLET RxNorm TAKE 1 TABLET ORAL ONCE A DAY PARoxetine HCl 12.5MG Oral Tablet, Extended Release 08/18/2021 Unknown ORAL ONCE A DAY 12.5 MILLIGRAMS 3588282 RxNorm TAKE 12.5 MILLIGRAMS ORAL ONCE A DAY PARoxetine HCl 37.5MG Oral Tablet, Extended Release 08/18/2021 Unknown ORAL DAILY AT 1600 37.5 MILLIGRAMS 6969642 RxNorm TAKE 37.5 MILLIGRAMS ORAL DAILY AT 1600 Vitamin D3 2000 IU Oral Capsule, Liquid Filled 08/18/2021 Unknown ORAL ONCE A DAY 2000 unit(s) RxNorm TAKE 2000 EACH ORAL ONCE A DAY tadalafil 20MG Oral Tablet 08/18/2021 Unknown ORAL ONCE A DAY 20 MILLIGRAMS 7698631 RxNorm TAKE 20 MILLIGRAMS ORAL ONCE A DAY Albuterol Sulfate 0.083% Inhalation Solution 09/18/2021 Unknown NEBULIZER NEEDED EVERY 4 HOURS 2.5 MILLIGRAMS 463726 RxNorm 2.5 MILLIGRAMS NEBULIZER NEEDED EVERY 4 HOURS Lisinopril 10MG Oral Tablet 09/18/2021 Unknown ORAL ONCE A DAY 10 MILLIGRAMS 360886 RxNorm TAKE 10 MILLIGRAMS ORAL ONCE A DAY Metoprolol Succinate 50MG Oral Tablet, Extended Release 09/18/2021 Unknown ORAL ONCE A DAY 50 MILLIGRAMS 393770 RxNorm TAKE 50 MILLIGRAMS ORAL ONCE A DAY FOR HIGH BLOOD PRESSURE risperiDONE 0.5MG Oral Tablet 09/18/2021 Unknown ORAL ONCE A DAY 0.25 MILLIGRAMS 454828 RxNorm TAKE 0.25 MILLIGRAMS ORAL ONCE A [...] Date Status Code Code System CHF active 14001542 SNOMED-CT PNEUMONIA 08/07/2021 active 244214497 SNOMED-CT Allergies and Adverse Reactions Allergy Substance Reaction Severity Start Date Concern Status Co de Code System POLYMYXIN B/TRIMETHOPRIM SULFATE Active 968014 Rx Norm Plan of Treatment COVID-19 Antibody Therapy Infusion 03/25 Encounters Encounter Diagnosis Start Date Code Code Sys tem Other termination clerk (current) drug therapy 05/03/2024 SNOMED-CT Personal Care Team Section Performer Name Performer Role Active Date Inactive Da te
--- OUTSIDE RECORDS SUMMARY | 2024-08-25 08:05 | XMS_ITS | Encounter Summary ---
Author Organization [facility] Address [facility] [place] [address] Care Team Providers Care Metrology Specialist Name Role Phone Randal Ferraro MD Primary Care Provider Gokul Alberts MD Primary Care Provider [phone] Encounter Details Date Type Department Care Team (Late st Contact Info) Description 2017 Abstract SMD CONVERSION [address] [address] , Generic Conversion, Social History Tobacco Use [...] on filedocumented in this encounter Care Teams Metrology Specialist Relationship Specialty Start Date End Date Randal Ferraro MD PCP - General FAMILY PRACTICE 09/11/20 09/17/20 Gokul Alberts MD PCP - General FAMILY PRACTICE 09/18/20 documented as of this encounter
--- OUTSIDE RECORDS SUMMARY | 2024-08-25 08:05 | XMS_ITS ---
Author Organization Unknown Address [address] [place] [address] [phone] Phone Care Team Providers Care Employee Health Rn Name Role Phone JACK BORGES Attending Unavailable [...] mcg/0.5 mL 02/01/2024 Completed 312 CVX Results TSH - Collect Date/Time: 06:40 [facility] ID: [id number] [address] [place] [address], [phone] LOINC: 57995-0 Test Value Unit Reference Range Code Code System Flag TSH. 3.000 uIU/L L=0.470 H=4.680 96667-0 LOINC BASIC METABOLIC PANEL - Ruth ect Date/Time: 11/10/2023 06:40 [facility] ID: [id number] [address] [place] [address], [phone] LOINC: 08211-0 Test Value Unit Reference Range Code Code System Flag FASTING YES BUN 14 mg/dL L=7 H=20 3094-0 LOINC CREATININE 0.80 mg/dL L=0.66 H=1.25 2160-0 LOINC GLUCOSE 101 mg/dL L=74 H=106 2345-7 LOINC CALCIUM 9.9 mg/dL L=8.3 H=10.5 12148-4 LOINC SODIUM 138 mmol/L L=132 H=144 2951-2 LOINC POTASSIUM 4.7 mmol/L L=3.5 H=5.1 2823-3 LOINC CHLORIDE 103 mmol/L L=98 H=107 2075-0 LOINC CO2 28.0 mmol/L L=22.0 H=30.0 2028-01 LOINC ANION GAP 12 L=10 H=20 01892-4 LOINC BUN/CREAT 17.5 3097-3 LOINC AGE 43 13334-5 LOINC eGFR NON-AFR 113 ml/min eGFR AFR AMER 137 ml/min T4 FREE - Collect Date/Time: 11/10/2023 06:40 [facility] ID: [id number] [address] [place] [address], [phone] LOINC: 3024-7 Test Value Unit Reference Range Code Code System Flag T4, FREE 1.59 ng/dL L=0.78 H=2.19 3024-7 LOINC FREE T3 - Collect Date/Time: 11/10/2023 06:40 [facility] ID: [id number] [address] [place] [address], [phone] LOINC: 3051-0 Test Value Unit Reference Range Code Code System Flag FREE T3 4.26 pg/mL L=2.77 H=5.27 3051-0 LOINC HGB A1C -GLYCOHEMOGLOBIN - C ollect Date/Time: 11/10/2023 06:40 [facility] ID: [id number] [address] [place] [address], [phone] LOINC: 4548-4 Test Value Unit Reference Range Code Code System Flag HGBA1C 5.8 % 4548-4 LOINC Social History Type Status Start Date End Date Code Code Syst em Smoking History Current every day smoker 802509045 SNOMED CT Sex Male Medications Medication Start Date End Date Route Frequency Dose Code Code System Medication Instructions Home Meds Aspirin 325MG Oral Tablet 08/18/2021 Unknown ORAL ONCE A DAY 325 MILLIGRAMS 791380 RxNorm TAKE 325 MILLIGRAMS ORAL ONCE A DAY Cetirizine HCl 10MG Oral Tablet 08/18/2021 Unknown ORAL ONCE A DAY 10 MILLIGRAMS 4938302 RxNorm TAKE 10 MILLIGRAMS ORAL ONCE A [...] Unknown ORAL ONCE A DAY 12.5 MILLIGRAMS 3413341 RxNorm TAKE 12.5 MILLIGRAMS ORAL ONCE A DAY PARoxetine HCl 37.5MG Oral Tablet, Extended Release 08/18/2021 Unknown ORAL DAILY AT 1600 37.5 MILLIGRAMS 3787865 RxNorm TAKE 37.5 MILLIGRAMS ORAL DAILY AT 1600 Vitamin D3 2000 IU Oral Capsule, Liquid Filled 08/18/2021 Unknown ORAL ONCE A DAY 2000 unit(s) RxNorm TAKE 2000 EACH ORAL ONCE A DAY tadalafil 20MG Oral Tablet 08/18/2021 Unknown ORAL ONCE A DAY 20 MILLIGRAMS 1061412 RxNorm TAKE 20 MILLIGRAMS ORAL ONCE A DAY Albuterol Sulfate 0.083% Inhalation Solution 09/18/2021 Unknown NEBULIZER NEEDED EVERY 4 HOURS 2.5 MILLIGRAMS 765379 RxNorm 2.5 MILLIGRAMS NEBULIZER NEEDED EVERY 4 HOURS Lisinopril 10MG Oral Tablet 09/18/2021 Unknown ORAL ONCE A DAY 10 MILLIGRAMS 327013 RxNorm TAKE 10 MILLIGRAMS ORAL ONCE A DAY Metoprolol Succinate 50MG Oral Tablet, Extended Release 09/18/2021 Unknown ORAL ONCE A DAY 50 MILLIGRAMS 093928 RxNorm TAKE 50 MILLIGRAMS ORAL ONCE A DAY FOR HIGH BLOOD PRESSURE risperiDONE 0.5MG Oral Tablet 09/18/2021 Unknown ORAL ONCE A DAY 0.25 MILLIGRAMS 283193 RxNorm TAKE 0.25 MILLIGRAMS ORAL ONCE A DAY Lasix 40MG Oral Tablet 09/18/2021 Unknown BY MOUTH ONCE A DAY 1 TABLET RxNorm TAKE 1 TABLET BY MOUTH ONCE A DAY Assessment You had the following problems:[facility] Hospital Discharge Instructions Should you have any questions prior to discharge, please contact a member of your healthcare team. If you have left the hospital and have any questions, please contact your primary care physician. Reason For Referral No Data Found Problems Problem Start Date Resolved Date Status Code Code System CHF active 85853103 SNOMED-CT PNEUMONIA 08/07/2021 active 555023965 SNOMED-CT Allergies and Adverse Reactions Allergy Substance Reaction Severity Start Date Concern Status Co de Code System POLYMYXIN B/TRIMETHOPRIM SULFATE Active 925380 Rx Norm Plan of Treatment COVID-19 Antibody Therapy Infusion 03/25 Encounters Encounter Diagnosis Start Date Code Code Sys tem Hypothyroidism, unspecified 11/10/2023 SNOMED-CT Personal Care Team Section Performer Name Performer Role Active Date Inactive Da te
--- OUTSIDE RECORDS SUMMARY | 2024-08-25 08:05 | XMS_ITS ---
Author Organization Unknown Address [address] [place] [address] [phone] Phone Care Team Providers Care Furniture Upholsterer Name Role Phone VALERIEMADHAV LOTUS WHITAKERHNP Attending [...] BASIC METABOLIC PANEL - Ruth ect Date/Time: 04/07/2023 06:45 [facility] ID: [id number] [address] [place], [place], [phone] LOINC: 05300-8 Test Value Unit Reference Range Code Code System Flag FASTING YES BUN 14 mg/dL L=7 H=20 3094-0 LOINC CREATININE 0.80 mg/dL L=0.66 H=1.25 2160-0 LOINC GLUCOSE 93 mg/dL L=74 H=106 2345-7 LOINC CALCIUM 9.8 mg/dL L=8.3 H=10.5 10337-3 LOINC SODIUM 139 mmol/L L=132 H=144 2951-2 LOINC POTASSIUM 4.8 mmol/L L=3.5 H=5.1 2823-3 LOINC CHLORIDE 101 mmol/L L=98 H=107 2075-0 LOINC CO2 30.0 mmol/L L=22.0 H=30.0 2028-9 LOINC ANION GAP 13 L=10 H=20 70739-1 LOINC BUN/CREAT 17.5 3097-3 LOINC AGE 42 68418-0 LOINC eGFR NON-AFR 114 ml/min eGFR AFR AMER 138 ml/min Social History Type Status Start Date End Date Code Code Syst em Smoking History Current every day smoker 862098335 SNOMED CT Sex Male Medications Medication Start Date End Date Route Frequency Dose Code Code System Medication Instructions Home Meds Aspirin 325MG Oral Tablet 08/18/2021 Unknown ORAL ONCE A DAY 325 MILLIGRAMS 553414 RxNorm TAKE 325 MILLIGRAMS ORAL ONCE A DAY Cetirizine HCl 10MG Oral Tablet 08/18/2021 Unknown ORAL ONCE A DAY 10 MILLIGRAMS 8694525 RxNorm TAKE 10 MILLIGRAMS ORAL ONCE A DAY DSS 100MG Oral Capsule, Liquid Filled 08/18/2021 Unknown ORAL AT BEDTIME 100 MILLIGRAMS RxNorm TAKE 100 MILLIGRAMS ORAL AT BEDTIME Montelukast Sodium 10MG Oral Tablet 08/18/2021 Unknown ORAL AT BEDTIME 10 MILLIGRAMS 013266 RxNorm TAKE 10 MILLIGRAMS ORAL AT BEDTIME Multivitamin with Iron Oral Tablet 08/18/2021 Unknown ORAL ONCE A DAY 1 TABLET RxNorm TAKE 1 TABLET ORAL ONCE A DAY PARoxetine HCl 12.5MG Oral Tablet, Extended Release 08/18/2021 Unknown ORAL ONCE A DAY 12.5 MILLIGRAMS 1841295 RxNorm TAKE 12.5 MILLIGRAMS ORAL ONCE A DAY PARoxetine HCl 37.5MG Oral Tablet, Extended Release 08/18/2021 Unknown ORAL DAILY AT 1600 37.5 MILLIGRAMS 5985626 RxNorm TAKE 37.5 MILLIGRAMS ORAL DAILY AT 1600 Vitamin D3 2000 IU Oral Capsule, Liquid Filled 08/18/2021 Unknown ORAL ONCE A DAY 2000 unit(s) RxNorm TAKE 2000 EACH ORAL ONCE A DAY tadalafil 20MG Oral Tablet 08/18/2021 Unknown ORAL ONCE A DAY 20 MILLIGRAMS 3259591 RxNorm TAKE 20 MILLIGRAMS ORAL ONCE A DAY Albuterol Sulfate 0.083% Inhalation Solution 09/18/2021 Unknown NEBULIZER NEEDED EVERY 4 HOURS 2.5 MILLIGRAMS 133629 RxNorm 2.5 MILLIGRAMS NEBULIZER NEEDED EVERY 4 HOURS Lisinopril 10MG Oral Tablet 09/18/2021 Unknown ORAL ONCE A DAY 10 MILLIGRAMS 470438 RxNorm TAKE 10 MILLIGRAMS ORAL ONCE A DAY Metoprolol Succinate 50MG Oral Tablet, Extended Release 09/18/2021 Unknown ORAL ONCE A DAY 50 MILLIGRAMS 958611 RxNorm TAKE 50 MILLIGRAMS ORAL ONCE A DAY FOR HIGH BLOOD PRESSURE risperiDONE 0.5MG Oral Tablet 09/18/2021 Unknown ORAL ONCE A DAY 0.25 MILLIGRAMS 184030 RxNorm TAKE 0.25 MILLIGRAMS ORAL ONCE A [...] Date Status Code Code System CHF active 76431702 SNOMED-CT PNEUMONIA 08/07/2021 active 015460498 SNOMED-CT Allergies and Adverse Reactions Allergy Substance Reaction Severity Start Date Concern Status Co de Code System POLYMYXIN B/TRIMETHOPRIM SULFATE Active 527908 Rx Norm Plan of Treatment COVID-19 Antibody Therapy Infusion 03/25 Encounters Encounter Diagnosis Start Date Code Code Sys tem Long-term current use of drug therapy 04/07/2023 710 123812 SNOMED-CT Personal Care Team Section Performer Name Performer Role Active Date Inactive Da te
--- OUTSIDE RECORDS SUMMARY | 2024-08-25 08:06 | XMS_ITS ---
Author Organization Unknown Address [address] [place] [phone] Phone Care Team Providers Care Charge Attendant Name Role Phone JACK BORGES Attending Unavailable [...] BASIC METABOLIC PANEL - Ruth ect Date/Time: 12/01/2023 06:15 [facility] ID: [id number] [address] [place], [place], [phone] LOINC: 91517-3 Test Value Unit Reference Range Code Code System Flag FASTING YES BUN 10 mg/dL L=7 H=20 3094-0 LOINC CREATININE 0.80 mg/dL L=0.66 H=1.25 2160-0 LOINC GLUCOSE 128 mg/dL L=74 H=106 2345-7 LOINC H CALCIUM 9.8 mg/dL L=8.3 H=10.5 04353-4 LOINC SODIUM 139 mmol/L L=132 H=144 2951-2 LOINC POTASSIUM 4.5 mmol/L L=3.5 H=5.1 2823-3 LOINC CHLORIDE 105 mmol/L L=98 H=107 2075-0 LOINC CO2 30.0 mmol/L L=22.0 H=30.0 2028-9 LOINC ANION GAP 9 L=10 H=20 50454-0 LOINC L BUN/CREAT 12.5 3097-3 LOINC AGE 43 22668-0 LOINC eGFR NON-AFR 113 ml/min eGFR AFR AMER 137 ml/min Social History Type Status Start Date End Date Code Code Syst em Smoking History Current every day smoker 204563910 SNOMED CT Sex Male Medications Medication Start Date End Date Route Frequency Dose Code Code System Medication Instructions Home Meds Aspirin 325MG Oral Tablet 08/18/2021 Unknown ORAL ONCE A DAY 325 MILLIGRAMS 618090 RxNorm TAKE 325 MILLIGRAMS ORAL ONCE A DAY Cetirizine HCl 10MG Oral Tablet 08/18/2021 Unknown ORAL ONCE A DAY 10 MILLIGRAMS 7045172 RxNorm TAKE 10 MILLIGRAMS ORAL ONCE A DAY DSS 100MG Oral Capsule, Liquid Filled 08/18/2021 Unknown ORAL AT BEDTIME 100 MILLIGRAMS RxNorm TAKE 100 MILLIGRAMS ORAL AT BEDTIME Montelukast Sodium 10MG Oral Tablet 08/18/2021 Unknown ORAL AT BEDTIME 10 MILLIGRAMS 472901 RxNorm TAKE 10 MILLIGRAMS ORAL AT BEDTIME Multivitamin with Iron Oral Tablet 08/18/2021 Unknown ORAL ONCE A DAY 1 TABLET RxNorm TAKE 1 TABLET ORAL ONCE A DAY PARoxetine HCl 12.5MG Oral Tablet, Extended Release 08/18/2021 Unknown ORAL ONCE A DAY 12.5 MILLIGRAMS 4598648 RxNorm TAKE 12.5 MILLIGRAMS ORAL ONCE A DAY PARoxetine HCl 37.5MG Oral Tablet, Extended Release 08/18/2021 Unknown ORAL DAILY AT 1600 37.5 MILLIGRAMS 6663273 RxNorm TAKE 37.5 MILLIGRAMS ORAL DAILY AT 1600 Vitamin D3 2000 IU Oral Capsule, Liquid Filled 08/18/2021 Unknown ORAL ONCE A DAY 2000 unit(s) RxNorm TAKE 2000 EACH ORAL ONCE A DAY tadalafil 20MG Oral Tablet 08/18/2021 Unknown ORAL ONCE A DAY 20 MILLIGRAMS 3126705 RxNorm TAKE 20 MILLIGRAMS ORAL ONCE A DAY Albuterol Sulfate 0.083% Inhalation Solution 09/18/2021 Unknown NEBULIZER NEEDED EVERY 4 HOURS 2.5 MILLIGRAMS 884618 RxNorm 2.5 MILLIGRAMS NEBULIZER NEEDED EVERY 4 HOURS Lisinopril 10MG Oral Tablet 09/18/2021 Unknown ORAL ONCE A DAY 10 MILLIGRAMS 115278 RxNorm TAKE 10 MILLIGRAMS ORAL ONCE A DAY Metoprolol Succinate 50MG Oral Tablet, Extended Release 09/18/2021 Unknown ORAL ONCE A DAY 50 MILLIGRAMS 328109 RxNorm TAKE 50 MILLIGRAMS ORAL ONCE A DAY FOR HIGH BLOOD PRESSURE risperiDONE 0.5MG Oral Tablet 09/18/2021 Unknown ORAL ONCE A DAY 0.25 MILLIGRAMS 184835 RxNorm TAKE 0.25 MILLIGRAMS ORAL ONCE A [...] Date Status Code Code System CHF active 92118519 SNOMED-CT PNEUMONIA 08/07/2021 active 266205308 SNOMED-CT Allergies and Adverse Reactions Allergy Substance Reaction Severity Start Date Concern Status Co de Code System POLYMYXIN B/TRIMETHOPRIM SULFATE Active 730808 Rx Norm Plan of Treatment COVID-19 Antibody Therapy Infusion 03/25 Encounters Encounter Diagnosis Start Date Code Code 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
--- OUTSIDE RECORDS SUMMARY | 2024-08-25 08:06 | XMS_ITS | Encounter Summary ---
Author Organization [facility] Health Address [address] [place] [address] [place] [address] Care Team Providers Care Form Maker Plaster Name Role Phone Gokul Alberts MD Primary Care Provider Gbariela Morillo PANataliaC Unavailable Reason for Visit * Reason Onset Date Comments Follow-up 08/24/2024 Encounter Details Date Type Department Care Team (Late st Contact Info) Description 08/24/2024 Telephone [facility] - Pulmonology [facility] [place] [address] Tabby Silva, RN Follow-up Social History Tobacco Use Types Packs/Day Years Used Date Smoking Tobacco: Never Passive Smoke Exposure: Never Smokeless Tobacco: Never Alcohol Use Standard Drinks/Week Comments Never 0 [...] encounter Miscellaneous Notes * Telephone Encounter - Tabby Silva - 08/24/2024 11:01 AM CDT Called to see how patient is doing with his new PH medication, Opsumit. Neither of the caregivers are in at the moment, and I was advised to call back in 2 hours. Call placed to [facility], Pharmcist Noman, verified that patients first shipment of opsumit was sent on 08/11/24. TLW documented in this encounter Plan of Treatment Upcoming Encounters Date Type Department Care Team (Late st Contact Info) Description 09/22/2024 9:30 AM CDT Appointment [facility] at [address] [place] [address] 09/22/2024 10:00 AM CDT Appointment [facility] at [address] [address] Samuel Vaughn MD [address] [place] [phone] 10/18/2024 10:30 AM CDT Office Visit [facility] - Pulmonology [address] [place] [address], [place] [phone] Segundo Gonzalez MD [address] [place] [address] 2L DIV OF PULMONARY/[place] [phone] documented as of this encounter Visit Diagnoses Not on filedocumented in this encounter Care Teams Form Maker Plaster Relationship Specialty Start Date End Date Gokul Alberts MD [address] [place] [phone] PCP - General 09/04/18 Gabriela Morillo PA-C [address] [place] [phone] Physician Facilities Project Manager Pediatric Cardiology 10/31/24 documented as of this encounter
--- OUTSIDE RECORDS SUMMARY | 2024-08-25 08:06 | XMS_ITS ---
Author Organization Unknown Address [address] [place] [phone] Phone Care Team Providers Care Reliability Technologist Name Role Phone FERNY SHEETS Attending Unavailable BAO Walker Primary Unavailable Immunization [...] CBC W/ DIFF - Collect Date/T ayaz: 04/22/2023 10:40 [facility] ID: [id number] [address] [place], [place], [phone] LOINC: 50931-2 Test Value Unit Reference Range Code Code System Flag WBC 7.9 10^3uL L=4.8 H=10.8 RBC 4.81 10^6uL L=4.60 H=6.20 HEMOGLOBIN 15.2 g/dL L=14.0 H=18.0 718-7 LOINC HEMATOCRIT 46.2 VOL% L=42.0 H=52.0 4544-3 LOINC MCV 96.0 fL L=80.0 H=94.0 H MCH 31.6 pg L=27.0 H=32.0 MCHC 32.9 g/dL L=32.0 H=36.0 PLATELETS 239 10^3uL L=100 H=400 15381-7 LOINC RDW 12.2 % L=11.7 H=15.5 %GRAN 54.2 % L=40.0 H=70.0 30213-9 LOINC %LYMPH 27.9 % L=20.0 H=45.0 736-9 LOINC %MONO 13.6 % L=2.0 H=10.0 79609-4 LOINC H %EOS 3.4 % L=0.0 H=6.0 713-8 LOINC %BASO 0.6 % L=0.0 H=3.0 706-2 LOINC #NEUT 4.3 10^3uL L=1.9 H=7.6 36810-6 LOINC #LYMPH 2.2 10^3uL L=0.9 H=4.9 53753-2 LOINC #MONO 1.1 10^3uL L=0.1 H=0.9 22288-4 LOINC H #EOS 0.3 10^3uL L=0.0 H=0.6 712-0 LOINC #BASO 0.05 10^3uL L=0.00 H=0.10 98661-0 LOINC #IM GRANS 0.0 10^3uL L=0.0 H=7.0 61490-9 LOINC %IM GRANS 0.3 % L=0.0 H=5.0 05601-0 LOINC %NRB 0.0 L=0.0 H=0.2 69081-4 LOINC #NRB 0.000 L=0.000 H=0.012 90231-3 LOINC MANUAL DIFF NOT INDICATED RBC MORPH NOT INDICATED COMPREHENSIVE METABOLIC PANE L - Collect Date/Time: 04/22/2023 10:40 [facility] ID: [id number] [address] [place], [place], [phone] LOINC: 54780-1 Test Value Unit Reference Range Code Code System Flag FASTING NO BUN 14 mg/dL L=7 H=20 3094-0 LOINC CREATININE 1.00 mg/dL L=0.66 H=1.25 2160-0 LOINC GLUCOSE 83 mg/dL L=74 H=106 2345-7 LOINC SODIUM 140 mmol/L L=132 H=144 2951-2 LOINC POTASSIUM 4.0 mmol/L L=3.5 H=5.1 2823-3 LOINC CHLORIDE 99 mmol/L L=98 H=107 2075-0 LOINC CO2 33.0 mmol/L L=22.0 H=30.0 2028-9 LOINC H ANION GAP 12 L=10 H=20 29770-7 LOINC OSMOLALITY 290 mOs/kG L=280 H=296 90935-2 LOINC BUN/CREAT 14.0 3097-3 LOINC CALCIUM 9.7 mg/dL L=8.3 H=10.5 68784-1 LOINC AST 32 U/L L=15 H=46 1920-8 LOINC ALT 33 U/L L=9 H=72 1742-6 LOINC ALKALINE PHOS 120 U/L L=38 H=126 6768-6 LOINC TOTAL BILI 0.7 mg/dL L=0.2 H=1.3 1975-2 LOINC ALBUMIN 4.7 G/dL L=3.5 H=5.0 1751-7 LOINC TOTAL PROTEIN 8.4 g/L L=6.3 H=8.2 2885-2 LOINC H A/G RATIO 1.3 52642-0 LOINC AGE 42 48518-6 LOINC eGFR NON-AFR 88 ml/min eGFR AFR AMER 106 ml/min LIPID PANEL - Collect Date/T ayaz: 04/22/2023 10:40 [facility] ID: [id number] [address] [place] [address], [phone] LOINC: 85429-1 Test Value Unit Reference Range Code Code System Flag FASTING NO CHOLESTEROL 206 mg/dL L=0 H=200 3-3 LOINC H TRIGLYCERIDE 115 mg/dL L=0 H=150 2571-8 LOINC HDL 54 mg/dL L=40 H=60 5-9 LOINC LDL 108 mg/dL 2088-1 LOINC HGB A1C -GLYCOHEMOGLOBIN - C ollect Date/Time: 04/22/2023 10:40 [facility] ID: [id number] [address] [place] [address], [phone] LOINC: 4548-4 Test Value Unit Reference Range Code Code System Flag HGBA1C 5.9 % 4548-4 LOINC 25 HYDROXY VITAMIN D - Colle ct Date/Time: 04/22/2023 10:40 [facility] ID: [id number] [address] [place], [place], [phone] LOINC: Test Value Unit Reference Range Code Code System Flag VITAMIN D 43.2 ng/ml L=30.0 H=100 84142-8 LOINC Social History Type Status Start Date End Date Code Code Syst em Smoking History Current every day smoker 394856858 SNOMED CT Sex Male Medications Medication Start Date End Date Route Frequency Dose Code Code System Medication Instructions Home Meds Aspirin 325MG Oral Tablet 08/18/2021 Unknown ORAL ONCE A DAY 325 MILLIGRAMS 270350 RxNorm TAKE 325 MILLIGRAMS ORAL ONCE A DAY Cetirizine HCl 10MG Oral Tablet 08/18/2021 Unknown ORAL ONCE A DAY 10 MILLIGRAMS 3969537 RxNorm TAKE 10 MILLIGRAMS ORAL ONCE A DAY DSS 100MG Oral Capsule, Liquid Filled 08/18/2021 Unknown ORAL AT BEDTIME 100 MILLIGRAMS RxNorm TAKE 100 MILLIGRAMS ORAL AT BEDTIME Montelukast Sodium 10MG Oral Tablet 08/18/2021 Unknown ORAL AT BEDTIME 10 MILLIGRAMS 836710 RxNorm TAKE 10 MILLIGRAMS ORAL AT BEDTIME Multivitamin with Iron Oral Tablet 08/18/2021 Unknown ORAL ONCE A DAY 1 TABLET RxNorm TAKE 1 TABLET ORAL ONCE A DAY PARoxetine HCl 12.5MG Oral Tablet, Extended Release 08/18/2021 Unknown ORAL ONCE A DAY 12.5 MILLIGRAMS 2900811 RxNorm TAKE 12.5 MILLIGRAMS ORAL ONCE A DAY PARoxetine HCl 37.5MG Oral Tablet, Extended Release 08/18/2021 Unknown ORAL DAILY AT 1600 37.5 MILLIGRAMS 1445112 RxNorm TAKE 37.5 MILLIGRAMS ORAL DAILY AT 1600 Vitamin D3 2000 IU Oral Capsule, Liquid Filled 08/18/2021 Unknown ORAL ONCE A DAY 2000 unit(s) RxNorm TAKE 2000 EACH ORAL ONCE A DAY tadalafil 20MG Oral Tablet 08/18/2021 Unknown ORAL ONCE A DAY 20 MILLIGRAMS 2091751 RxNorm TAKE 20 MILLIGRAMS ORAL ONCE A DAY Albuterol Sulfate 0.083% Inhalation Solution 09/18/2021 Unknown NEBULIZER NEEDED EVERY 4 HOURS 2.5 MILLIGRAMS 484512 RxNorm 2.5 MILLIGRAMS NEBULIZER NEEDED EVERY 4 HOURS Lisinopril 10MG Oral Tablet 09/18/2021 Unknown ORAL ONCE A DAY 10 MILLIGRAMS 512370 RxNorm TAKE 10 MILLIGRAMS ORAL ONCE A DAY Metoprolol Succinate 50MG Oral Tablet, Extended Release 09/18/2021 Unknown ORAL ONCE A DAY 50 MILLIGRAMS 485863 RxNorm TAKE 50 MILLIGRAMS ORAL ONCE A DAY FOR HIGH BLOOD PRESSURE risperiDONE 0.5MG Oral Tablet 09/18/2021 Unknown ORAL ONCE A DAY 0.25 MILLIGRAMS 366511 RxNorm TAKE 0.25 MILLIGRAMS ORAL ONCE A [...] Date Status Code Code System CHF active 31295695 SNOMED-CT PNEUMONIA 08/07/2021 active 507934884 SNOMED-CT Allergies and Adverse Reactions Allergy Substance Reaction Severity Start Date Concern Status Co de Code System POLYMYXIN B/TRIMETHOPRIM SULFATE Active 173781 Rx Norm Plan of Treatment COVID-19 Antibody Therapy Infusion 03/25 Encounters Encounter Diagnosis Start Date Code Code Sys tem 04/22/2023 [id number] SNOMED-CT Personal Care Team Section Performer Name Performer Role Active Date Inactive John zuñiga
--- OUTSIDE RECORDS SUMMARY | 2024-08-25 08:06 | XMS_ITS | Clinical Summary ---
Author Organization [facility] Address [facility]ly [facility] [place] [address] Care Team Providers Care Veneer Measurer Name Role Phone Gokul Alberts MD Primary Care Provider [phone] Medications No known medications Active Problems No known active problems Social History Tobacco Use Types Packs/Day Years Used Date Smoking Tobacco: Never Assessed Sex and Gender Information Value Date Recorded Sex Assigned at Not on file Legal Sex Male 8:18 PM CDT Gender Identity Not on file Sexual Orientation Not on file Plan of Treatment Health Maintenance Due Date Last Done Comments Annual Physical 1985 Hepatitis C 2000 DTaP, Tdap and Td Vaccines (1 - Tdap) 2001 12/14/1987, 09/07/1986, 02/12/1983, Additional history exists Hepatitis B Vaccines (1 of 3 - 19+ 3-dose series) 2001 COVID-19 Vaccine ( season) 2024 07/05/2020, 06/14/2020 Influenza Adult (#1) 2024 Pneumococcal Vaccine: Pediatrics (0 to 5 Years) and At-Risk Patients (6 to 64 Years) Aged Out 03/07/2016 No longer eligible based on patient's age to complete this topic HPV Vaccines Aged Out No longer eligi ble based on patient's age to complete this topic Meningococcal B Vaccine Aged Out No l onger eligible based on patient's age to complete this topic Meningococcal Vaccine Aged Out No lavon sivakumar eligible based on patient's age to complete this topic RSV Immunizations Under 20 Months Aged Out No longer eligible based on patient's age to complete this topic Insurance MEDICARE MEDICAID Care Teams Veneer Measurer Relationship Specialty Start Date End Date Gokul Alberts MD PCP - General FAMILY PRACTICE 09/18/20
--- OUTSIDE RECORDS SUMMARY | 2024-08-25 08:06 | XMS_ITS ---
Author Organization Unknown Address [address] [place] [phone] Phone Care Team Providers Care Oil Well Driller Name Role Phone JACK BORGES Attending Unavailable [...] BASIC METABOLIC PANEL - Ruth ect Date/Time: 03/24/2023 06:54 [facility] ID: [id number] [place], [place], [id number] LOINC: 05396-9 Test Value Unit Reference Range Code Code System Flag FASTING NO BUN 11 mg/dL L=7 H=20 3094-0 LOINC CREATININE 0.70 mg/dL L=0.66 H=1.25 2160-0 LOINC GLUCOSE 104 mg/dL L=74 H=106 2345-7 LOINC CALCIUM 9.4 mg/dL L=8.3 H=10.5 59673-9 LOINC SODIUM 139 mmol/L L=132 H=144 2951-2 LOINC POTASSIUM 4.5 mmol/L L=3.5 H=5.1 2823-3 LOINC CHLORIDE 100 mmol/L L=98 H=107 2075-0 LOINC CO2 32.0 mmol/L L=22.0 H=30.0 2028-9 LOINC H ANION GAP 12 L=10 H=20 76702-8 LOINC BUN/CREAT 15.7 3097-3 LOINC AGE 42 66651-1 LOINC eGFR NON-AFR 133 ml/min eGFR AFR AMER 161 ml/min Social History Type Status Start Date End Date Code Code Syst em Smoking History Current every day smoker 392735066 SNOMED CT Sex Male Medications Medication Start Date End Date Route Frequency Dose Code Code System Medication Instructions Home Meds Aspirin 325MG Oral Tablet 08/18/2021 Unknown ORAL ONCE A DAY 325 MILLIGRAMS 830626 RxNorm TAKE 325 MILLIGRAMS ORAL ONCE A DAY Cetirizine HCl 10MG Oral Tablet 08/18/2021 Unknown ORAL ONCE A DAY 10 MILLIGRAMS 3135036 RxNorm TAKE 10 MILLIGRAMS ORAL ONCE A DAY DSS 100MG Oral Capsule, Liquid Filled 08/18/2021 Unknown ORAL AT BEDTIME 100 MILLIGRAMS RxNorm TAKE 100 MILLIGRAMS ORAL AT BEDTIME Montelukast Sodium 10MG Oral Tablet 08/18/2021 Unknown ORAL AT BEDTIME 10 MILLIGRAMS 524749 RxNorm TAKE 10 MILLIGRAMS ORAL AT BEDTIME Multivitamin with Iron Oral Tablet 08/18/2021 Unknown ORAL ONCE A DAY 1 TABLET RxNorm TAKE 1 TABLET ORAL ONCE A DAY PARoxetine HCl 12.5MG Oral Tablet, Extended Release 08/18/2021 Unknown ORAL ONCE A DAY 12.5 MILLIGRAMS 8408943 RxNorm TAKE 12.5 MILLIGRAMS ORAL ONCE A DAY PARoxetine HCl 37.5MG Oral Tablet, Extended Release 08/18/2021 Unknown ORAL DAILY AT 1600 37.5 MILLIGRAMS 9844014 RxNorm TAKE 37.5 MILLIGRAMS ORAL DAILY AT 1600 Vitamin D3 2000 IU Oral Capsule, Liquid Filled 08/18/2021 Unknown ORAL ONCE A DAY 2000 unit(s) RxNorm TAKE 2000 EACH ORAL ONCE A DAY tadalafil 20MG Oral Tablet 08/18/2021 Unknown ORAL ONCE A DAY 20 MILLIGRAMS 9573180 RxNorm TAKE 20 MILLIGRAMS ORAL ONCE A DAY Albuterol Sulfate 0.083% Inhalation Solution 09/18/2021 Unknown NEBULIZER NEEDED EVERY 4 HOURS 2.5 MILLIGRAMS 572304 RxNorm 2.5 MILLIGRAMS NEBULIZER NEEDED EVERY 4 HOURS Lisinopril 10MG Oral Tablet 09/18/2021 Unknown ORAL ONCE A DAY 10 MILLIGRAMS 952190 RxNorm TAKE 10 MILLIGRAMS ORAL ONCE A DAY Metoprolol Succinate 50MG Oral Tablet, Extended Release 09/18/2021 Unknown ORAL ONCE A DAY 50 MILLIGRAMS 288871 RxNorm TAKE 50 MILLIGRAMS ORAL ONCE A DAY FOR HIGH BLOOD PRESSURE risperiDONE 0.5MG Oral Tablet 09/18/2021 Unknown ORAL ONCE A DAY 0.25 MILLIGRAMS 208704 RxNorm TAKE 0.25 MILLIGRAMS ORAL ONCE A [...] Date Status Code Code System CHF active 72982245 SNOMED-CT PNEUMONIA 08/07/2021 active 314444473 SNOMED-CT Allergies and Adverse Reactions Allergy Substance Reaction Severity Start Date Concern Status Co de Code System POLYMYXIN B/TRIMETHOPRIM SULFATE Active 069542 Rx Norm Plan of Treatment COVID-19 Antibody Therapy Infusion 03/25 Encounters Encounter Diagnosis Start Date Code Code 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
--- OUTSIDE RECORDS SUMMARY | 2024-08-25 08:06 | XMS_ITS ---
Author Organization Unknown Address [address] [place] [phone] Phone Care Team Providers Care Navy Airspace Officer Name Role Phone VALERIEMADHAV LOTUS WHITAKERHNP Attending [...] CBC W/ DIFF - Collect Date/T ayaz: 08/03/2024 06:55 [facility] ID: [id number] [place], [place], [id number] LOINC: 32176-3 Test Value Unit Reference Range Code Code System Flag WBC 7.6 10^3uL L=4.8 H=10.8 RBC 4.48 10^6uL L=4.60 H=6.20 L HEMOGLOBIN 14.0 g/dL L=14.0 H=18.0 718-7 LOINC HEMATOCRIT 43.3 VOL% L=42.0 H=52.0 4544-3 LOINC MCV 96.7 fL L=80.0 H=94.0 H MCH 31.3 pg L=27.0 H=32.0 MCHC 32.3 g/dL L=32.0 H=36.0 PLATELETS 296 10^3uL L=100 H=400 06145-7 LOINC RDW 12.5 % L=11.7 H=15.5 %GRAN 55.7 % L=40.0 H=70.0 59500-4 LOINC %LYMPH 29.1 % L=20.0 H=45.0 736-9 LOINC %MONO 11.5 % L=2.0 H=10.0 77947-9 LOINC H %EOS 2.9 % L=0.0 H=6.0 713-8 LOINC %BASO 0.5 % L=0.0 H=3.0 706-2 LOINC #NEUT 4.2 10^3uL L=1.9 H=7.6 30370-6 LOINC #LYMPH 2.2 10^3uL L=0.9 H=4.9 66141-6 LOINC #MONO 0.9 10^3uL L=0.1 H=0.9 60666-8 LOINC #EOS 0.2 10^3uL L=0.0 H=0.6 712-0 LOINC #BASO 0.04 10^3uL L=0.00 H=0.10 35291-1 LOINC #IM GRANS 0.0 10^3uL L=0.0 H=7.0 20603-0 LOINC %IM GRANS 0.3 % L=0.0 H=5.0 65221-9 LOINC %NRB 0.0 L=0.0 H=0.2 53800-0 LOINC #NRB 0.000 L=0.000 H=0.012 04358-1 LOINC MANUAL DIFF NOT INDICATED RBC MORPH NOT INDICATED BASIC METABOLIC PANEL - Ruth ect Date/Time: 08/03/2024 06:55 [facility] ID: [id number] [address] [place], [place], [phone] LOINC: 49894-0 Test Value Unit Reference Range Code Code System Flag FASTING YES BUN 7 mg/dL L=7 H=20 3094-0 LOINC CREATININE 0.60 mg/dL L=0.66 H=1.25 2160-0 LOINC L GLUCOSE 89 mg/dL L=74 H=106 2345-7 LOINC CALCIUM 9.5 mg/dL L=8.3 H=10.5 54612-1 LOINC SODIUM 136 mmol/L L=132 H=144 2951-2 LOINC POTASSIUM 4.4 mmol/L L=3.5 H=5.1 2823-3 LOINC CHLORIDE 100 mmol/L L=98 H=107 2075-0 LOINC CO2 27.0 mmol/L L=22.0 H=30.0 2028-01 LOINC ANION GAP 13 L=10 H=20 33681-3 LOINC OSMOLALITY 279 mOs/kG L=280 H=296 40639-6 LOINC L BUN/CREAT 11.7 3097-3 LOINC AGE 43 65664-7 LOINC eGFR NON-AFR 158 ml/min eGFR AFR AMER 191 ml/min PRO BNP - Collect Date/Time: 08/03/2024 06:55 [facility] ID: [id number] [address] [place], [place], [phone] LOINC: 23969-4 Test Value Unit Reference Range Code Code System Flag Pro BNP2 99 pg/mL L=0 H=450 07437-6 LOINC Social History Type Status Start Date End Date Code Code Syst em Smoking History Current every day smoker 754989774 SNOMED CT Sex Male Medications Medication Start Date End Date Route Frequency Dose Code Code System Medication Instructions Home Meds Aspirin 325MG Oral Tablet 08/18/2021 Unknown ORAL ONCE A DAY 325 MILLIGRAMS 291706 RxNorm TAKE 325 MILLIGRAMS ORAL ONCE A DAY Cetirizine HCl 10MG Oral Tablet 08/18/2021 Unknown ORAL ONCE A DAY 10 MILLIGRAMS 0231550 RxNorm TAKE 10 MILLIGRAMS ORAL ONCE A [...] Unknown ORAL ONCE A DAY 12.5 MILLIGRAMS 7715479 RxNorm TAKE 12.5 MILLIGRAMS ORAL ONCE A DAY PARoxetine HCl 37.5MG Oral Tablet, Extended Release 08/18/2021 Unknown ORAL DAILY AT 1600 37.5 MILLIGRAMS 9153510 RxNorm TAKE 37.5 MILLIGRAMS ORAL DAILY AT 1600 Vitamin D3 2000 IU Oral Capsule, Liquid Filled 08/18/2021 Unknown ORAL ONCE A DAY 1999 unit(s) RxNorm TAKE 2000 EACH ORAL ONCE A DAY tadalafil 20MG Oral Tablet 08/18/2021 Unknown ORAL ONCE A DAY 20 MILLIGRAMS 3277097 RxNorm TAKE 20 MILLIGRAMS ORAL ONCE A DAY Albuterol Sulfate 0.083% Inhalation Solution 09/18/2021 Unknown NEBULIZER NEEDED EVERY 4 HOURS 2.5 MILLIGRAMS 381029 RxNorm 2.5 MILLIGRAMS NEBULIZER NEEDED EVERY 4 HOURS Lisinopril 10MG Oral Tablet 09/18/2021 Unknown ORAL ONCE A DAY 10 MILLIGRAMS 964594 RxNorm TAKE 10 MILLIGRAMS ORAL ONCE A DAY Metoprolol Succinate 50MG Oral Tablet, Extended Release 09/18/2021 Unknown ORAL ONCE A DAY 50 MILLIGRAMS 664713 RxNorm TAKE 50 MILLIGRAMS ORAL ONCE A DAY FOR HIGH BLOOD PRESSURE risperiDONE 0.5MG Oral Tablet 09/18/2021 Unknown ORAL ONCE A DAY 0.25 MILLIGRAMS 336853 RxNorm TAKE 0.25 MILLIGRAMS ORAL ONCE A [...] Date Status Code Code System CHF active 56819793 SNOMED-CT PNEUMONIA 08/07/2021 active 140790329 SNOMED-CT Allergies and Adverse Reactions Allergy Substance Reaction Severity Start Date Concern Status Co de Code System POLYMYXIN B/TRIMETHOPRIM SULFATE Active 941387 Rx Norm Plan of Treatment COVID-19 Antibody Therapy Infusion 03/25 Encounters Encounter Diagnosis Start Date Code Code Sys tem Dyspnea 08/03/2024 781104325 SNOMED-CT Personal Care Team Section Performer Name Performer Role Active Date Inactive Da te
--- OUTSIDE RECORDS SUMMARY | 2024-08-25 08:07 | XMS_ITS ---
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 Name Role Phone JACK BORGES Attending Unavailable [...] BASIC METABOLIC PANEL - Ruth ect Date/Time: 07/07/2023 06:25 [facility] ID: [id number] [place], [place], [id number] LOINC: 57116-7 Test Value Unit Reference Range Code Code System Flag FASTING YES BUN 14 mg/dL L=7 H=20 3094-0 LOINC CREATININE 0.80 mg/dL L=0.66 H=1.25 2160-0 LOINC GLUCOSE 84 mg/dL L=74 H=106 2345-7 LOINC CALCIUM 9.7 mg/dL L=8.3 H=10.5 23298-1 LOINC SODIUM 140 mmol/L L=132 H=144 2951-2 LOINC POTASSIUM 4.2 mmol/L L=3.5 H=5.1 2823-3 LOINC CHLORIDE 101 mmol/L L=98 H=107 2075-0 LOINC CO2 29.0 mmol/L L=22.0 H=30.0 8-9 LOINC ANION GAP 14 L=10 H=20 59522-0 LOINC BUN/CREAT 17.5 3097-3 LOINC AGE 42 11601-7 LOINC eGFR NON-AFR 114 ml/min eGFR AFR AMER 138 ml/min HEPATITIS C AB (HCV Ab) - Co llect Date/Time: 07/07/2023 06:25 [facility] ID: [id number] [place], [place], [id number] LOINC: 35916-2 Test Value Unit Reference Range Code Code System Flag Hep C Virus Ab Non Reactive Non Reactive 68811-4 LOINC SEND TO IF? NO HIV 4th GEN Ab 1&2 p24 Ag in -house - Collect Date/Time: 07/07/2023 06:25 [facility] ID: [id number] [place], [place], [phone] LOINC: 47969-8 Test Value Unit Reference Range Code Code System Flag HIV-1 Ab NEGATIVE NORMAL: NON REACTIVE/NE HIV-2 Ab NEGATIVE HIV-p24 Ag NEGATIVE SEND TO IF? NO REFLEX? NO 5778-6 LOINC Social History Type Status Start Date End Date Code Code Syst em Smoking History Current every day smoker 741386048 SNOMED CT Sex Male Medications Medication Start Date End Date Route Frequency Dose Code Code System Medication Instructions Home Meds Aspirin 325MG Oral Tablet 08/18/2021 Unknown ORAL ONCE A DAY 325 MILLIGRAMS 691504 RxNorm TAKE 325 MILLIGRAMS ORAL ONCE A DAY Cetirizine HCl 10MG Oral Tablet 08/18/2021 Unknown ORAL ONCE A DAY 10 MILLIGRAMS 8855379 RxNorm TAKE 10 MILLIGRAMS ORAL ONCE A DAY DSS 100MG Oral Capsule, Liquid Filled 08/18/2021 Unknown ORAL AT BEDTIME 100 MILLIGRAMS RxNorm TAKE 100 MILLIGRAMS ORAL AT BEDTIME Montelukast Sodium 10MG Oral Tablet 08/18/2021 Unknown ORAL AT BEDTIME 10 MILLIGRAMS 856844 RxNorm TAKE 10 MILLIGRAMS ORAL AT BEDTIME Multivitamin with Iron Oral Tablet 08/18/2021 Unknown ORAL ONCE A DAY 1 TABLET RxNorm TAKE 1 TABLET ORAL ONCE A DAY PARoxetine HCl 12.5MG Oral Tablet, Extended Release 08/18/2021 Unknown ORAL ONCE A DAY 12.5 MILLIGRAMS 4195818 RxNorm TAKE 12.5 MILLIGRAMS ORAL ONCE A DAY PARoxetine HCl 37.5MG Oral Tablet, Extended Release 08/18/2021 Unknown ORAL DAILY AT 1600 37.5 MILLIGRAMS 4237754 RxNorm TAKE 37.5 MILLIGRAMS ORAL DAILY AT 1600 Vitamin D3 2000 IU Oral Capsule, Liquid Filled 08/18/2021 Unknown ORAL ONCE A DAY 1999 unit(s) RxNorm TAKE 2000 EACH ORAL ONCE A DAY tadalafil 20MG Oral Tablet 08/18/2021 Unknown ORAL ONCE A DAY 20 MILLIGRAMS 7274441 RxNorm TAKE 20 MILLIGRAMS ORAL ONCE A DAY Albuterol Sulfate 0.083% Inhalation Solution 09/18/2021 Unknown NEBULIZER NEEDED EVERY 4 HOURS 2.5 MILLIGRAMS 963217 RxNorm 2.5 MILLIGRAMS NEBULIZER NEEDED EVERY 4 HOURS Lisinopril 10MG Oral Tablet 09/18/2021 Unknown ORAL ONCE A DAY 10 MILLIGRAMS 857941 RxNorm TAKE 10 MILLIGRAMS ORAL ONCE A DAY Metoprolol Succinate 50MG Oral Tablet, Extended Release 09/18/2021 Unknown ORAL ONCE A DAY 50 MILLIGRAMS 739326 RxNorm TAKE 50 MILLIGRAMS ORAL ONCE A DAY FOR HIGH BLOOD PRESSURE risperiDONE 0.5MG Oral Tablet 09/18/2021 Unknown ORAL ONCE A DAY 0.25 MILLIGRAMS 210891 RxNorm TAKE 0.25 MILLIGRAMS ORAL ONCE A DAY Lasix 40MG Oral Tablet 09/18/2021 Unknown BY MOUTH ONCE A DAY 1 TABLET RxNorm TAKE 1 TABLET BY MOUTH ONCE A DAY Assessment [facility] the following problems[facility] Discharge Instructions Should you have any questions prior to discharge, please contact a member of your healthcare team. If you have left the hospital and have any questions, please contact your primary care physician. 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
--- OUTSIDE RECORDS SUMMARY | 2024-08-25 08:07 | XMS_ITS ---
Author Organization Unknown Address [address] [place] [phone] Phone Care Team Providers Care Dean Of Instruction Name Role Phone JACK BORGES Attending Unavailable BOA Walker Primary Unavailable Immunization Immunization Date Status [...] BASIC METABOLIC PANEL - Ruth ect Date/Time: 01/26/2024 07:25 [facility] ID: [id number] [place], [place], [phone] LOINC: 50696-1 Test Value Unit Reference Range Code Code System Flag FASTING NO BUN 15 mg/dL L=7 H=20 3094-0 LOINC CREATININE 0.80 mg/dL L=0.66 H=1.25 2160-0 LOINC GLUCOSE 91 mg/dL L=74 H=106 2345-7 LOINC CALCIUM 10.1 mg/dL L=8.3 H=10.5 22077-5 LOINC SODIUM 138 mmol/L L=132 H=144 2951-2 LOINC POTASSIUM 4.5 mmol/L L=3.5 H=5.1 2823-3 LOINC CHLORIDE 98 mmol/L L=98 H=107 2075-0 LOINC CO2 31.0 mmol/L L=22.0 H=30.0 2028-9 LOINC H ANION GAP 14 L=10 H=20 88914-2 LOINC BUN/CREAT 18.8 3097-3 LOINC AGE 43 47778-0 LOINC eGFR NON-AFR 113 ml/min eGFR AFR AMER 137 ml/min Social History Type Status Start Date End Date Code Code Syst em Smoking History Current every day smoker 720080416 SNOMED CT Sex Male Medications Medication Start Date End Date Route Frequency Dose Code Code System Medication Instructions Home Meds Aspirin 325MG Oral Tablet 08/18/2021 Unknown ORAL ONCE A DAY 325 MILLIGRAMS 218987 RxNorm TAKE 325 MILLIGRAMS ORAL ONCE A DAY Cetirizine HCl 10MG Oral Tablet 08/18/2021 Unknown ORAL ONCE A DAY 10 MILLIGRAMS 5463800 RxNorm TAKE 10 MILLIGRAMS ORAL ONCE A DAY DSS 100MG Oral Capsule, Liquid Filled 08/18/2021 Unknown ORAL AT BEDTIME 100 MILLIGRAMS RxNorm TAKE 100 MILLIGRAMS ORAL AT BEDTIME Montelukast Sodium 10MG Oral Tablet 08/18/2021 Unknown ORAL AT BEDTIME 10 MILLIGRAMS 855000 RxNorm TAKE 10 MILLIGRAMS ORAL AT BEDTIME Multivitamin with Iron Oral Tablet 08/18/2021 Unknown ORAL ONCE A DAY 1 TABLET RxNorm TAKE 1 TABLET ORAL ONCE A DAY PARoxetine HCl 12.5MG Oral Tablet, Extended Release 08/18/2021 Unknown ORAL ONCE A DAY 12.5 MILLIGRAMS 2624249 RxNorm TAKE 12.5 MILLIGRAMS ORAL ONCE A DAY PARoxetine HCl 37.5MG Oral Tablet, Extended Release 08/18/2021 Unknown ORAL DAILY AT 1600 37.5 MILLIGRAMS 4489748 RxNorm TAKE 37.5 MILLIGRAMS ORAL DAILY AT 1600 Vitamin D3 2000 IU Oral Capsule, Liquid Filled 08/18/2021 Unknown ORAL ONCE A DAY 2000 unit(s) RxNorm TAKE 2000 EACH ORAL ONCE A DAY tadalafil 20MG Oral Tablet 08/18/2021 Unknown ORAL ONCE A DAY 20 MILLIGRAMS 9460412 RxNorm TAKE 20 MILLIGRAMS ORAL ONCE A DAY Albuterol Sulfate 0.083% Inhalation Solution 09/18/2021 Unknown NEBULIZER NEEDED EVERY 4 HOURS 2.5 MILLIGRAMS 052192 RxNorm 2.5 MILLIGRAMS NEBULIZER NEEDED EVERY 4 HOURS Lisinopril 10MG Oral Tablet 09/18/2021 Unknown ORAL ONCE A DAY 10 MILLIGRAMS 829530 RxNorm TAKE 10 MILLIGRAMS ORAL ONCE A DAY Metoprolol Succinate 50MG Oral Tablet, Extended Release 09/18/2021 Unknown ORAL ONCE A DAY 50 MILLIGRAMS 469712 RxNorm TAKE 50 MILLIGRAMS ORAL ONCE A DAY FOR HIGH BLOOD PRESSURE risperiDONE 0.5MG Oral Tablet 09/18/2021 Unknown ORAL ONCE A DAY 0.25 MILLIGRAMS 026975 RxNorm TAKE 0.25 MILLIGRAMS ORAL ONCE A [...] Date Status Code Code System CHF active 40683391 SNOMED-CT PNEUMONIA 08/07/2021 active 280105134 SNOMED-CT Allergies and Adverse Reactions Allergy Substance Reaction Severity Start Date Concern Status Co de Code System POLYMYXIN B/TRIMETHOPRIM SULFATE Active 201500 Rx Norm Plan of Treatment COVID-19 Antibody Therapy Infusion 03/25 Encounters Encounter Diagnosis Start Date Code Code Sys tem Other nursing home (current) drug therapy 01/26/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
--- OUTSIDE RECORDS SUMMARY | 2024-08-25 08:07 | XMS_ITS ---
Author Organization Unknown Address [address] [place] [phone] Phone Care Team Providers Care Automobile Service Station Attendant Name Role Phone VALERIEMADHAV LOTUS WHITAKERHNP Attending [...] BASIC METABOLIC PANEL - Ruth ect Date/Time: 07/04/2024 07:40 [facility] ID: [id number] [place], [place], [phone] LOINC: 54435-5 Test Value Unit Reference Range Code Code System Flag FASTING NO BUN 11 mg/dL L=7 H=20 3094-0 LOINC CREATININE 0.70 mg/dL L=0.66 H=1.25 2160-0 LOINC GLUCOSE 163 mg/dL L=74 H=106 2345-7 LOINC H CALCIUM 9.6 mg/dL L=8.3 H=10.5 35631-6 LOINC SODIUM 137 mmol/L L=132 H=144 2951-2 LOINC POTASSIUM 4.0 mmol/L L=3.5 H=5.1 2823-3 LOINC CHLORIDE 99 mmol/L L=98 H=107 2075-0 LOINC CO2 24.0 mmol/L L=22.0 H=30.0 2028-9 LOINC ANION GAP 18 L=10 H=20 10749-6 LOINC BUN/CREAT 15.7 3097-3 LOINC AGE 43 22637-3 LOINC eGFR NON-AFR 132 ml/min eGFR AFR AMER 160 ml/min Social History Type Status Start Date End Date Code Code Syst em Smoking History Current every day smoker 632566805 SNOMED CT Sex Male Medications Medication Start Date End Date Route Frequency Dose Code Code System Medication Instructions Home Meds Aspirin 325MG Oral Tablet 08/18/2021 Unknown ORAL ONCE A DAY 325 MILLIGRAMS 775720 RxNorm TAKE 325 MILLIGRAMS ORAL ONCE A DAY Cetirizine HCl 10MG Oral Tablet 08/18/2021 Unknown ORAL ONCE A DAY 10 MILLIGRAMS 3762104 RxNorm TAKE 10 MILLIGRAMS ORAL ONCE A DAY DSS 100MG Oral Capsule, Liquid Filled 08/18/2021 Unknown ORAL AT BEDTIME 100 MILLIGRAMS RxNorm TAKE 100 MILLIGRAMS ORAL AT BEDTIME Montelukast Sodium 10MG Oral Tablet 08/18/2021 Unknown ORAL AT BEDTIME 10 MILLIGRAMS 049031 RxNorm TAKE 10 MILLIGRAMS ORAL AT BEDTIME Multivitamin with Iron Oral Tablet 08/18/2021 Unknown ORAL ONCE A DAY 1 TABLET RxNorm TAKE 1 TABLET ORAL ONCE A DAY PARoxetine HCl 12.5MG Oral Tablet, Extended Release 08/18/2021 Unknown ORAL ONCE A DAY 12.5 MILLIGRAMS 1523974 RxNorm TAKE 12.5 MILLIGRAMS ORAL ONCE A DAY PARoxetine HCl 37.5MG Oral Tablet, Extended Release 08/18/2021 Unknown ORAL DAILY AT 1600 37.5 MILLIGRAMS 2391569 RxNorm TAKE 37.5 MILLIGRAMS ORAL DAILY AT 1600 Vitamin D3 2000 IU Oral Capsule, Liquid Filled 08/18/2021 Unknown ORAL ONCE A DAY 2000 unit(s) RxNorm TAKE 2000 EACH ORAL ONCE A DAY tadalafil 20MG Oral Tablet 08/18/2021 Unknown ORAL ONCE A DAY 20 MILLIGRAMS 6360824 RxNorm TAKE 20 MILLIGRAMS ORAL ONCE A DAY Albuterol Sulfate 0.083% Inhalation Solution 09/18/2021 Unknown NEBULIZER NEEDED EVERY 4 HOURS 2.5 MILLIGRAMS 261183 RxNorm 2.5 MILLIGRAMS NEBULIZER NEEDED EVERY 4 HOURS Lisinopril 10MG Oral Tablet 09/18/2021 Unknown ORAL ONCE A DAY 10 MILLIGRAMS 550518 RxNorm TAKE 10 MILLIGRAMS ORAL ONCE A DAY Metoprolol Succinate 50MG Oral Tablet, Extended Release 09/18/2021 Unknown ORAL ONCE A DAY 50 MILLIGRAMS 609394 RxNorm TAKE 50 MILLIGRAMS ORAL ONCE A DAY FOR HIGH BLOOD PRESSURE risperiDONE 0.5MG Oral Tablet 09/18/2021 Unknown ORAL ONCE A DAY 0.25 MILLIGRAMS 560698 RxNorm TAKE 0.25 MILLIGRAMS ORAL ONCE A [...] Date Status Code Code System CHF active 06227919 SNOMED-CT PNEUMONIA 08/07/2021 active 138278065 SNOMED-CT Allergies and Adverse Reactions Allergy Substance Reaction Severity Start Date Concern Status Co de Code System POLYMYXIN B/TRIMETHOPRIM SULFATE Active 788393 Rx Norm Plan of Treatment COVID-19 Antibody Therapy Infusion 03/25 Encounters Encounter Diagnosis Start Date Code Code Sys tem Other custodial (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
== END 2024-08-25 07:57 | disposition home or self-care (01) ==
LOC: ANHAUDIO 07:57
PROVIDERS: PCP Family Medicine; Visit Provider Family Medicine
DX: H90.3 Sensorineural hearing loss, bilateral (principal); Z97.4 Presence of external hearing-aid; Z01.10 Encounter for examination of ears and hearing without abnormal findings
CPT/HCPCS: 92557; 92567